=== PATIENT | male | born 1975 | race Caucasian/White ===

== ENCOUNTER 2016-08-20 12:13 | Inpatient (IN) | payer SELFPAY ==
[~2016-08-20] VITALS: Ht 185.4 cm; Wt 66.2 kg
[2016-08-20] VITALS (7 sets, daily range): BP systolic 118–133; BP diastolic 64–71; PULSE 69–84; RESP 16–18; TEMP 98.7–102.9; O2SAT 96–99
[~2016-08-20 12:13] MED LIST: CLON.1 PO; SUBO8MIS SL
[2016-08-20] MEDS ORDERED: ACETAMINOPHEN 325 MG TAB PO ONE (12:45)
[2016-08-20] MEDS ORDERED: MORPHINE SULFATE 4 MG/ML INJ IV PUSH ONE (12:45)
[2016-08-20] MEDS ORDERED: SODIUM CHLOR 0.9% 1000 ML INJ 1,000 ML IV ONE (12:45)
[2016-08-20 13:02] LABS: AUTOMATED NEUTROPHIL # 5.4 TH/MM3 (1.8-7.7); BASOPHIL # 0.3 TH/MM3 (0-0.2); BASOPHIL % 4.2 % (0.0-2.0); HEMATOCRIT 35.5 % (39.0-51.0); HEMO FLAGS DIFF FINAL; LYMPH % 11.1 % (9.0-44.0); LYMPHOCYTE # 0.8 TH/MM3 (1.0-4.8); MEAN CELL VOLUME 79.9 FL (80.0-100.0); MEAN CORPUSCULAR HEMOGLOBIN 26.7 PG (27.0-34.0); MEAN CORPUSCULAR HGB CONC 33.4 % (32.0-36.0); MONO % 6.6 % (0.0-8.0); NEUT % 78.1 % (16.0-70.0); PLATELET COUNT 177 TH/MM3 (150-450); RED BLOOD COUNT 4.44 MIL/MM3 (4.50-5.90); RED CELL DISTRIBUTION WIDTH 11.3 % (11.6-17.2)
[2016-08-20 13:13] LABS: CHLORIDE 95 MEQ/L (98-107); POTASSIUM 3.4 MEQ/L (3.5-5.1); SODIUM (NA) 130 MEQ/L (136-145)
[2016-08-20] MEDS ORDERED: SUBO2MIS SL (13:14)
[2016-08-20] MEDS ORDERED: CLON0.1T PO (13:14)
[2016-08-20] MEDS ORDERED: CLINDAMYCIN INJ 600 MG in SODIUM CHLORIDE 0.9% INJ 100 ML IV ONE (13:15)
[2016-08-20 13:16] LABS: ANION GAP 9 MEQ/L (5-15); BICARBONATE 26.1 MEQ/L (21.0-32.0); BLOOD UREA NITROGEN 10 MG/DL (7-18)
[2016-08-20 13:19] LABS: ALT (GPT) 12 U/L (12-78); AST (GOT) 18 U/L (15-37)
[2016-08-20 13:20] LABS: GLOMERULAR FILTRATION RATE 130 ML/MIN (>89)
[2016-08-20 13:21] LABS: TOTAL BILIRUBIN ADULT 0.7 MG/DL (0.2-1.0)
[2016-08-20 13:22] LABS: ALKALINE PHOSPHATASE 54 U/L (45-117)
[2016-08-20] MEDS ORDERED: IOHEXOL 350 MG/ML 10 ML VIAL (for RAD DIAG) IV ONE (13:56)
--- NOTE | 2016-08-20 14:28 | RADHPO ---
EXAM DATE/TIME: 08/20/2016 13:32 [place] COMPARISON: CT BRAIN W/O CONTRAST, February 10, 2015, 21:47. INDICATIONS : Right forearm pain and swelling status post IV injection. IV CONTRAST: 92 cc Omnipaque 350 (iohexol) IV RADIATION DOSE: 13.70 CTDIvol (mGy) MEDICAL HISTORY : None SURGICAL HISTORY : None. ENCOUNTER: Initial ACUITY: 4 - 6 days PAIN SCALE: 5/10 LOCATION: Right arm TECHNIQUE: Volumetric scanning of the forearm was performed. Using automated exposure control and adjustment of the mA and/or kV according to patient size, radiation dose was kept as low as reasonably achievable to obtain optimal diagnostic quality images. FINDINGS: The examination demonstrates extensive cellulitic changes in the subcutaneous soft tissues. There is abnormal enhancement along the cephalic vein which begins just below the level of the elbow and exten ds into the upper arm. In addition, the examination demonstrates an area of enhancement and a fluid c ollection within the deep subcutaneous tissues along the ventral surface of the forearm. There is ruth e enhancement of the fascia beneath this. This appears fairly dense by the CT and is possible this re presents phlegmon however, this would be concerning for drainable abscess. There is a small area of a bnormal enhancement and enlargement along the cephalic vein suggesting possibility of an infected thr ombophlebitis as well. The radius and ulna are intact. The distal brachial artery, the radial artery, the ulnar artery and i nterosseous artery are intact. CONCLUSION: 1. Grossly abnormal examination demonstrating abnormal enhancement along the cephalic vein with a foc al area of enlargement at the level of the mid forearm with significant induration and some fluid wit hin the superficial and deep subcutaneous soft tissues. Primary consideration would be cellulitis/phl egmon and possible infected thrombophlebitis. There are likely small amounts of drainable fluid withi n this as well however, no well-defined, enhancing pocket for drain placement is identified. Andrew Fernandez MD on August 20, 2016 at 14:20 Board Certified Radiologist. This report was verified electronically.
[2016-08-20] MEDS ORDERED: LIDOCAINE HCL 1% 50 ML VIAL INFIL ONE (15:00)
--- NOTE | 2016-08-20 15:00 | PD ---
HPI Chief Complaint: Skin Problem Time Seen by Provider: 12:33 Travel History International Travel<30 days: No Contact w/Intl Traveler<30days: No Traveled to known affect area: No History of Present Illness HPI is a 41-year-old male with history of IV drug abuse who comes in complaining of pain and swelling to his right arm. He says he noticed a small bump a few days ago and it quickly got worse. She is febrile here. He does admit to injecting in his arm in this area. He denies any chest pain or shortness of breath. PFSH Past Medical History Cancer: No Cardiovascular Problems: Yes (htn on meds) Diminished Hearing: No Endocrine: No Genitourinary: No Hypertension: Yes Immune Disorder: No Musculoskeletal: No Neurologic: No Psychiatric: No Respiratory: No Immunizations Current: No Past Surgical History Surgical History: No Previous Surgery Other Surgery: Yes (RIGHT HAND 2007 TENDON REPAIRS TO FINGERS) Social History Alcohol Use: Yes (A COUPLE BEERS 2-3 TIMES A WEEK) Tobacco Use: Yes (1/2 PPD) Substance Use: Yes (narcotics ) Allergies-Medications (Allergen,Severity, Reaction): Coded Allergies: No Known Allergies (Verified , 08/20/16) Reported Meds & Prescriptions Reported Meds & Active Scripts Active Reported Suboxone Sublingual Film (Buprenorphine-Naloxone Sublingual Film) 2-0.5 Mg Film 1 Film SL BID Unique ID number required: Clonidine (Clonidine HCl) 0.1 Mg Tab 0.1 Mg PO BID Review of Systems Except as stated in HPI: all other systems reviewed are Neg General / Constitutional: Positive: Fever HENT: No: Headaches Cardiovascular: No: Chest Pain or Discomfort Respiratory: No: Shortness of Breath Gastrointestinal: No: Nausea, Vomiting Musculoskeletal: Positive: Myalgias, Edema, Pain Skin: Positive Change in Pigmentation, Positive Lesions Neurologic: No: Weakness, Dizziness Physical Exam Narrative GENERAL: Awake and alert, in no acute distress. SKIN: Focused skin assessment warm/dry. Large area of erythema of the right forearm. Erythema is circumferential. There is an area of fluctuance on the ventral side of the right forearm. HEAD: Atraumatic. Normocephalic. EYES: Pupils equal and round. No scleral icterus. ENT: Mucous membranes pink and moist. NECK: Trachea midline. No JVD. CARDIOVASCULAR: Regular rate and rhythm. No murmur appreciated. RESPIRATORY: No accessory muscle use. Clear to auscultation. Breath sounds equal bilaterally. GASTROINTESTINAL: Abdomen soft, non-tender, nondistended. MUSCULOSKELETAL: No obvious deformities. No clubbing. No cyanosis. Large edema of the right forearm. No swelling of the elbow or wrist joint. NEUROLOGICAL: Awake and alert. No obvious cranial nerve deficits. Motor grossly within normal limits. Normal speech. PSYCHIATRIC: Appropriate mood and affect; insight and judgment normal. Data Data Last Documented VS Vital Signs Date Time Temp Pulse Resp B/P Pulse Ox O2 Delivery O2 Flow Rate FiO2 08/20/16 13:30 18 08/20/16 13:21 75 118/65 98 Room Air 08/20/16 12:39 102.9 Orders Complete Blood Count With Diff (08/20/16 12:39) Comprehensive Metabolic Panel (08/20/16 12:39) Ct Forearm W Iv Contrast (08/20/16 ) Sodium Chlor 0.9% 1000 Ml Inj (Ns 1000 M (08/20/16 12:45) Acetaminophen (Tylenol) (08/20/16 12:45) Morphine Inj (Morphine Inj) (08/20/16 12:45) Clindamycin Inj (Cleocin Inj) (08/20/16 13:15) Iohexol 350 Inj (Omnipaque 350 Inj) (08/20/16 13:56) Lactic Acid (08/20/16 14:14) Lidocaine 1% Inj (50 Ml) (Xylocaine 1% I (08/20/16 15:00) Wound Culture And Gram Stain (08/20/16 14:46) Blood Culture (08/20/16 14:49) Admit Order (Ed Use Only) (08/20/16 ) Place In Observation (08/20/16 ) Diet Regular Basic (08/20/16 Dinner) Activity Oob With Assistance (08/20/16 15:10) Vital Signs (Adult) ANAMIKA.Q4H (08/20/16 15:10) Magnesium (Mg) (08/20/16 15:10) Potassium Chloride (Kcl) (08/20/16 15:15) Labs Laboratory Tests Test 08/20/16 08/20/16 12:55 14:29 White Blood Count 7.0 TH/MM3 Red Blood Count 4.44 MIL/MM3 Hemoglobin 11.9 GM/DL Hematocrit 35.5 % Mean Corpuscular Volume 79.9 FL Mean Corpuscular Hemoglobin 26.7 PG Mean Corpuscular Hemoglobin 33.4 % Concent Red Cell Distribution Width 11.3 % Platelet Count 177 TH/MM3 Mean Platelet Volume 7.1 FL Neutrophils (%) (Auto) 78.1 % Lymphocytes (%) (Auto) 11.1 % Monocytes (%) (Auto) 6.6 % Eosinophils (%) (Auto) 0.0 % Basophils (%) (Auto) 4.2 % Neutrophils # (Auto) 5.4 TH/MM3 Lymphocytes # (Auto) 0.8 TH/MM3 Monocytes # (Auto) 0.5 TH/MM3 Eosinophils # (Auto) 0.0 TH/MM3 Basophils # (Auto) 0.3 TH/MM3 CBC Comment DIFF FINAL Differential Comment Sodium Level 130 MEQ/L Potassium Level 3.4 MEQ/L Chloride Level 95 MEQ/L Carbon Dioxide Level 26.1 MEQ/L Anion Gap 9 MEQ/L Blood Urea Nitrogen 10 MG/DL Creatinine 0.68 MG/DL Estimat Glomerular Filtration 130 ML/MIN Rate Random Glucose 101 MG/DL Calcium Level 7.8 MG/DL Magnesium Level 1.7 MG/DL Total Bilirubin 0.7 MG/DL Aspartate Amino Transf 18 U/L (AST/SGOT) Alanine Aminotransferase 12 U/L (ALT/SGPT) Alkaline Phosphatase 54 U/L Total Protein 6.6 GM/DL Albumin 2.9 GM/DL Lactic Acid Level 0.7 mmol/L MDM Medical Decision Making Medical Screen Exam Complete: Yes Emergency Medical Condition: Yes Medical Record Reviewed: Yes Differential Diagnosis Cellulitis versus abscess versus necrotizing fasciitis Narrative Course Patient is a 41-year-old male comes in complaining of pain and swelling to his right forearm. Patient is febrile at triage. Exam shows large area of erythema , warmth, small abscess on the ventral side of the arm. IV established, labs sent. Labs show a sodium of 130, evidence of mild anemia. CT of the forearm shows extensive area of cellulitis with some deep tissue fluid collections. Patient given clindamycin. Given IV fluids, given Tylenol, given morphine. Patient will require admission for his extensive infection. Abscess drained and fluid sent for culture. Procedures Procedure Narrative INCISION AND DRAINAGE OF ABSCESS: The area was prepped and was sterilely draped. A subcutaneous wheal of 1 % Xylocaine with a total number 6 mL was used to anesthetize the area properly. A number 11 scalpel was used to make a 1 -cm incision across the area of the abscess. The abscess was drained, complex loculations were broken down, and irrigated with normal saline. Cultures were obtained. Sterile dressing applied. Diagnosis Primary Impression: right forearm cellulitis and abscess Admitting Information Admitting Physician Requests: Admit Condition: Stable Yeimi Moncada MD August 20, 2016 15:00
[2016-08-20] MEDS ORDERED: POTASSIUM CHLORIDE 10 MEQ CONTROLLED RELEASE TAB PO ONE (15:15)
[2016-08-20] MEDS ORDERED: Vancomycin Consult Pharmacy 1 EA OTHER SCH (16:00)
[2016-08-20] MEDS ORDERED: KETOROLAC TROMETHAMINE 30 MG/ML (IVP) VIAL IVP PRN (16:00)
[2016-08-20] MEDS ORDERED: ACETAMINOPHEN 325 MG TAB PO PRN (16:00)
[2016-08-20] MEDS ORDERED: VANCOMYCIN INJ 1,000 MG in SODIUM CHLOR 0.9% 250 ML INJ 250 ML IV ONE (16:00)
[2016-08-20] MEDS ORDERED: BISACODYL 10 MG SUPP RECTAL PRN (16:00)
[2016-08-20] MEDS ORDERED: ENALAPRILAT 1.25 MG/ML VIAL IV PRN (16:00)
[2016-08-20] MEDS ORDERED: cloNIDine HCL 0.1 MG TAB PO PRN (16:00)
[2016-08-20] MEDS ORDERED: ONDANSETRON HCL 4 MG/2 ML VIAL IVP PRN (16:00)
[2016-08-20] MEDS ORDERED: NALOXONE HCL 0.4 MG/ML AMP IV PRN (16:00)
--- NOTE | 2016-08-20 16:10 | HHI.HP ---
[facility] Service [facility] Primary Care Physician No Primary Care Physician Admission Diagnosis Cellulitis, sepsis Diagnoses: Chief Complaint: forearm pain and swelling Travel History International Travel<30 Days: No Contact w/Intl Traveler <30 Da: No Traveled to Known Affected Are: No History of Present Illness This is a 41-year-old male with history of IV narcotic abuse and HTN. He comes in complaining of pain and swelling to his right arm for the past several days. He reports of constant pressure. He noted a small bump a few days ago and it quickly got worse. He was febrile Tmax of over 101 improved after taking Tylenol. He does admit to injecting Dilaudid in his arm. He denies any chest pain or shortness of breath. Has history of MRSA. In the emergency department , abscess was drained and he was given IV clindamycin Review of Systems Except as stated in HPI: all other systems reviewed are Neg Past Family Social History Past Medical History Hypertension Past Surgical History Tendon surgery Reported Medications Suboxone and clonidine Allergies: Coded Allergies: No Known Allergies (Verified , 08/20/16) Family History No CVA or [place] Social History Drinks couple of beers 2-3 times a week. Smokes half a pack per day Physical Exam Vital Signs Vital Signs Date Time Temp Pulse Resp B/P Pulse Ox O2 Delivery O2 Flow Rate FiO2 08/20/16 13:30 18 08/20/16 13:21 75 18 118/65 98 Room Air 08/20/16 12:39 102.9 76 16 118/64 98 Room Air 08/20/16 12:20 101.5 82 16 128/68 98 Physical Exam GENERAL: This is a well-nourished, well-developed patient, in no apparent distress. SKIN: No rashes, ecchymoses or lesions. Cool and dry. Right forearm with large circumferential erythema with an area of fluctuance on the ventral side HEAD: Atraumatic. Normocephalic. No temporal or scalp tenderness. EYES: Pupils equal round and reactive. Extraocular motions intact. No scleral icterus. No injection or drainage. ENT: Nose without bleeding, purulent drainage or septal hematoma. Throat without erythema, tonsillar hypertrophy or exudate. Uvula midline. Airway patent. NECK: Trachea midline. No JVD or lymphadenopathy. Supple, nontender, no meningeal signs. CARDIOVASCULAR: Regular rate and rhythm without murmurs, gallops, or rubs. RESPIRATORY: Clear to auscultation. Breath sounds equal bilaterally. No wheezes , rales, or rhonchi. GASTROINTESTINAL: Abdomen soft, non-tender, nondistended. No guarding. MUSCULOSKELETAL: Extremities without clubbing, cyanosis, or edema. No joint tenderness, effusion, or edema noted. No calf tenderness. Negative Homans sign bilaterally. NEUROLOGICAL: Awake and alert. Cranial nerves II through XII intact. Motor and sensory grossly within normal limits. Five out of 5 muscle strength in all muscle groups. Normal speech. Laboratory Laboratory Tests Test 08/20/16 08/20/16 12:55 14:29 White Blood Count 7.0 Red Blood Count 4.44 Hemoglobin 11.9 Hematocrit 35.5 Mean Corpuscular Volume 79.9 Mean Corpuscular Hemoglobin 26.7 Mean Corpuscular Hemoglobin 33.4 Concent Red Cell Distribution Width 11.3 Platelet Count 177 Mean Platelet Volume 7.1 Neutrophils (%) (Auto) 78.1 Lymphocytes (%) (Auto) 11.1 Monocytes (%) (Auto) 6.6 Eosinophils (%) (Auto) 0.0 Basophils (%) (Auto) 4.2 Neutrophils # (Auto) 5.4 Lymphocytes # (Auto) 0.8 Monocytes # (Auto) 0.5 Eosinophils # (Auto) 0.0 Basophils # (Auto) 0.3 CBC Comment DIFF FINAL Differential Comment Sodium Level 130 Potassium Level 3.4 Chloride Level 95 Carbon Dioxide Level 26.1 Anion Gap 9 Blood Urea Nitrogen 10 Creatinine 0.68 Estimat Glomerular Filtration 130 Rate Random Glucose 101 Calcium Level 7.8 Magnesium Level 1.7 Total Bilirubin 0.7 Aspartate Amino Transf 18 (AST/SGOT) Alanine Aminotransferase 12 (ALT/SGPT) Alkaline Phosphatase 54 Total Protein 6.6 Albumin 2.9 Lactic Acid Level 0.7 Result Diagram: 08/20/16 1255 08/20/16 1255 Imaging Last Impressions Upper Extremity CT 08/20/16 0000 Signed Impressions: Service Date/Time: Saturday, August 20, 2016 13:32 - CONCLUSION: 1. Grossly abnormal examination demonstrating abnormal enhancement along the cephalic vein with a focal area of enlargement at the level of the mid forearm with significant induration and some fluid within the superficial and deep subcutaneous soft tissues. Primary consideration would be cellulitis/phlegmon and possible infected thrombophlebitis. There are likely small amounts of drainable fluid within this as well however, no well-defined, enhancing pocket for drain placement is identified. Andrew Fernandez MD Assessment and Plan Problem List: (1) right forearm cellulitis and abscess Status: Acute (2) IVDA Status: Acute Assessment and Plan This is a 41-year-old male who comes in complaining of pain and swelling to his right arm associated with fever. He does admit to injecting Dilaudid in his arm. Has history of MRSA. Right forearm cellulitis/abscess status post I and D and IV clindamycin in the emergency department. History of MRSA. CT shows cellulitis/phlegmon and possible infected thrombophlebitis. Start IV vancomycin and pain management with IV Toradol. Patient aware he is not going to be given IV narcotics. Warm compresses and elevation of the right upper extremity. Follow up cultures. Consider hand surgery consultation for formal I and D Hypertension. Stable continue clonidine with as needed antihypertensives Polysubstance abuse. Patient counseled. Low risk for DVT Discussed Condition With patient Say Shelton MD August 20, 2016 16:10
[2016-08-20] MEDS ORDERED: SUBO8MIS SL (17:55)
[2016-08-20] MEDS ORDERED: LORazepam 0.5 MG TAB PO PRN (18:00)
[2016-08-20] MEDS: ACETAMINOPHEN 325 MG TAB PO PRN (20:01)
[2016-08-20] MEDS: cloNIDine HCL 0.1 MG TAB PO SCH (20:01)
[2016-08-20] MEDS ORDERED: [UNRECOGNIZED DRUG - OTHER] SL SCH (21:00)
[2016-08-20] MEDS ORDERED: BUPRENORPHINE NALOXONE SL SCH (21:00)
[2016-08-21] VITALS (7 sets, daily range): BP systolic 99–136; BP diastolic 57–84; PULSE 68–87; RESP 14–22; TEMP 96.9–102.4; O2SAT 98–100
[2016-08-21] MEDS: VANCOMYCIN 1,000 MG/NS 250 ML IV SCH ×6 (00:11→16:11)
[2016-08-21] MEDS: ACETAMINOPHEN 325 MG TAB PO PRN (00:12)
[2016-08-21] MEDS ORDERED: IBUPROFEN 400 MG TAB PO ONE (00:45)
[2016-08-21 00:59] LABS: BARBITURATES, URINE NEG (NEG)
[2016-08-21 01:00] LABS: AMPHETAMINE, URINE NEG (NEG); COCAINE, URINE POS (NEG)
[2016-08-21] MEDS: BUPRENORPHINE 8 MG SL PRN ×2 (06:22→06:25)
[2016-08-21] MEDS: NALOXONE 2 MG SL PRN ×2 (06:22→06:25)
[2016-08-21] MEDS ORDERED: IBUPROFEN 400 MG TAB PO PRN (08:00)
[2016-08-21] MEDS: cloNIDine HCL 0.1 MG TAB PO SCH ×2 (08:26→21:13)
[2016-08-21 09:15] LABS: BICARBONATE 30.3 MEQ/L (21.0-32.0); POTASSIUM 4.2 MEQ/L (3.5-5.1)
--- NOTE | 2016-08-21 09:40 | HHI.PR ---
Subjective Remarks Follow-up right forearm cellulitis/abscess. States he is feeling much better able to ambulate without dizziness. Pain is nonexistent did not require analgesics overnight. Denies withdrawal symptoms. Discussed with RN Objective Vitals Vital Signs Date Time Temp Pulse Resp B/P Pulse Ox O2 Delivery O2 Flow Rate FiO2 08/21/16 07:57 96.9 68 20 99/57 98 08/21/16 02:30 99.2 08/21/16 00:55 102.4 80 14 124/70 98 08/20/16 20:28 102.9 83 16 129/71 99 08/20/16 19:50 98 21 08/20/16 17:25 98.7 69 18 133/68 98 08/20/16 15:45 98.9 84 18 96 08/20/16 13:30 18 08/20/16 13:21 75 18 118/65 98 Room Air 08/20/16 12:39 102.9 76 16 118/64 98 Room Air 08/20/16 12:20 101.5 82 16 128/68 98 I/O 08/20/16 08/20/16 08/20/16 08/21/16 08/21/16 08/21/16 07:00 15:00 23:00 07:00 15:00 23:00 Intake Total 1100 ml 720 ml Output Total 900 ml Balance 200 ml 720 ml Intake Oral 720 ml IV Total 1100 ml Output Urine Total 900 ml # Voids 1 3 Result Diagram: 08/20/16 1255 08/21/16 0735 Imaging Last Impressions Upper Extremity CT 08/20/16 0000 Signed Impressions: Service Date/Time: Saturday, August 20, 2016 13:32 - CONCLUSION: 1. Grossly abnormal examination demonstrating abnormal enhancement along the cephalic vein with a focal area of enlargement at the level of the mid forearm with significant induration and some fluid within the superficial and deep subcutaneous soft tissues. Primary consideration would be cellulitis/phlegmon and possible infected thrombophlebitis. There are likely small amounts of drainable fluid within this as well however, no well-defined, enhancing pocket for drain placement is identified. Andrew Fernandez MD Objective Remarks GENERAL: This is a well-nourished, well-developed patient, in no apparent distress. SKIN: No rashes, ecchymoses or lesions. Cool and dry. Right forearm with improving erythema. Affected areas still firm no fluctuance noted HEAD: Atraumatic. Normocephalic. No temporal or scalp tenderness. EYES: Pupils equal round and reactive. Extraocular motions intact. No scleral icterus. No injection or drainage. ENT: Nose without bleeding, purulent drainage or septal hematoma. Throat without erythema, tonsillar hypertrophy or exudate. Uvula midline. Airway patent. NECK: Trachea midline. No JVD or lymphadenopathy. Supple, nontender, no meningeal signs. CARDIOVASCULAR: Regular rate and rhythm without murmurs, gallops, or rubs. RESPIRATORY: Clear to auscultation. Breath sounds equal bilaterally. No wheezes , rales, or rhonchi. GASTROINTESTINAL: Abdomen soft, non-tender, nondistended. No guarding. MUSCULOSKELETAL: Extremities without clubbing, cyanosis, or edema. No joint tenderness, effusion, or edema noted. No calf tenderness. Negative Homans sign bilaterally. NEUROLOGICAL: Awake and alert. Cranial nerves II through XII intact. Motor and sensory grossly within normal limits. Five out of 5 muscle strength in all muscle groups. Normal speech. Procedures bedside I and D A/P Problem List: (1) right forearm cellulitis and abscess Status: Acute (2) IVDA Status: Acute Assessment and Plan This is a 41-year-old male who comes in complaining of pain and swelling to his right arm associated with fever. He does admit to injecting Dilaudid in his arm. Has history of MRSA. Right forearm cellulitis/abscess status post I and D and IV clindamycin in the emergency department. Possible history of MRSA. CT shows cellulitis/phlegmon and possible infected thrombophlebitis. Improving cellulitis continue IV vancomycin and pain management with IV Toradol. Patient aware he is not going to be given IV narcotics. Warm compresses and elevation of the right upper extremity. Follow up cultures growing gram-positive cocci in 1 out of 4 bottles. Consider surgery consultation for formal I and D Hypertension. Stable continue clonidine with as needed antihypertensives Polysubstance abuse. Patient counseled. Low risk for DVT Discharge Planning Not stable for discharge Say Shelton MD August 21, 2016 09:40
[2016-08-21] MEDS ORDERED: DIGOXIN 0.25 MG TAB PO ONE (13:15)
[2016-08-21] MEDS ORDERED: PHARMACY ORDERED LAB ONE (15:45)
[2016-08-21] MEDS: KETOROLAC TROMETHAMINE 30 MG/ML (IVP) VIAL IVP PRN (16:13)
[2016-08-22] VITALS: BP 125/84; PULSE 99; RESP 20; TEMP 99.6; O2SAT 98
[2016-08-22] MEDS: VANCOMYCIN INJ 1,250 MG in SODIUM CHLOR 0.9% 250 ML INJ 250 ML IV SCH ×2 (00:13→09:04)
[2016-08-22] MEDS: KETOROLAC TROMETHAMINE 30 MG/ML (IVP) VIAL IVP PRN ×2 (00:13→12:54)
[2016-08-22 04:00] VITALS: PULSE 88; RESP 20; O2SAT 100
[2016-08-22 08:00] VITALS: BP 105/74; PULSE 72; RESP 19; TEMP 98.6; O2SAT 100; O2SAT 96
[2016-08-22] MEDS: cloNIDine HCL 0.1 MG TAB PO SCH (09:02)
[2016-08-22] MEDS: NALOXONE 2 MG SL PRN (09:02)
[2016-08-22] MEDS: BUPRENORPHINE 8 MG SL PRN (09:02)
--- NOTE | 2016-08-22 09:51 | HHI.PR ---
Subjective Remarks Follow-up right forearm cellulitis/abscess. Patient states purulent material drained from right forearm. Denies withdrawal symptoms. Required IV Toradol overnight. Discussed with mother and RN Objective Vitals Vital Signs Date Time Temp Pulse Resp B/P Pulse Ox O2 Delivery O2 Flow Rate FiO2 08/22/16 08:00 98.6 72 19 105/74 100 08/22/16 04:00 88 20 100 08/22/16 01:13 18 08/22/16 00:00 99.6 99 20 125/84 98 08/21/16 20:00 98.3 69 22 118/66 98 08/21/16 20:00 98 21 08/21/16 16:00 97.8 87 20 136/84 100 08/21/16 13:36 98 08/21/16 12:00 101.1 84 20 132/74 100 I/O 08/21/16 08/21/16 08/21/16 08/22/16 08/22/16 08/22/16 06:59 14:59 22:59 06:59 14:59 22:59 Intake Total 720 ml 1020 ml 550 ml 610 ml Balance 720 ml 1020 ml 550 ml 610 ml Intake Oral 720 ml 1020 ml 550 ml 360 ml IV Total 250 ml # Voids 3 10 2 3 # Bowel Movements 0 0 Result Diagram: 08/20/16 1255 08/21/16 0735 Imaging Last Impressions Upper Extremity CT 08/20/16 0000 Signed Impressions: Service Date/Time: Saturday, August 20, 2016 13:32 - CONCLUSION: 1. Grossly abnormal examination demonstrating abnormal enhancement along the cephalic vein with a focal area of enlargement at the level of the mid forearm with significant induration and some fluid within the superficial and deep subcutaneous soft tissues. Primary consideration would be cellulitis/phlegmon and possible infected thrombophlebitis. There are likely small amounts of drainable fluid within this as well however, no well-defined, enhancing pocket for drain placement is identified. Andrew Fernandez MD Objective Remarks GENERAL: This is a well-nourished, well-developed patient, in no apparent distress. SKIN: No rashes, ecchymoses or lesions. Cool and dry. Right forearm with improving erythema and swelling HEAD: Atraumatic. Normocephalic. No temporal or scalp tenderness. EYES: Pupils equal round and reactive. Extraocular motions intact. No scleral icterus. No injection or drainage. ENT: Nose without bleeding, purulent drainage or septal hematoma. Throat without erythema, tonsillar hypertrophy or exudate. Uvula midline. Airway patent. NECK: Trachea midline. No JVD or lymphadenopathy. Supple, nontender, no meningeal signs. CARDIOVASCULAR: Regular rate and rhythm without murmurs, gallops, or rubs. RESPIRATORY: Clear to auscultation. Breath sounds equal bilaterally. No wheezes , rales, or rhonchi. GASTROINTESTINAL: Abdomen soft, non-tender, nondistended. No guarding. MUSCULOSKELETAL: Extremities without clubbing, cyanosis, or edema. No joint tenderness, effusion, or edema noted. No calf tenderness. Negative Homans sign bilaterally. NEUROLOGICAL: Awake and alert. Cranial nerves II through XII intact. Motor and sensory grossly within normal limits. Five out of 5 muscle strength in all muscle groups. Normal speech. Procedures bedside I and D A/P Problem List: (1) right forearm cellulitis and abscess Status: Acute (2) IVDA Status: Acute Assessment and Plan This is a 41-year-old male who comes in complaining of pain and swelling to his right arm associated with fever. He does admit to injecting Dilaudid in his arm. Has history of MRSA. Right forearm cellulitis/abscess status post I and D and IV clindamycin in the emergency department with MSSA bacteremia. Possible history of MRSA. Cx MSSA. CT shows cellulitis/phlegmon and possible infected thrombophlebitis. Improving cellulitis switch IV vancomycin to IV Ancef and continue pain management with IV Toradol. Patient aware he is not going to be given IV narcotics. Warm compresses and elevation of the right upper extremity. Repeat blood culture. Consult ID Hypertension. Stable continue clonidine with as needed antihypertensives Polysubstance abuse. UDS with cocaine. Patient counseled. Low risk for DVT Discharge Planning Not ready for discharge Say Shelton MD August 22, 2016 09:51
[2016-08-22 12:00] VITALS: BP 113/76; PULSE 72; RESP 20; TEMP 97.6; O2SAT 99
[2016-08-22] MEDS: NEOMYCIN/POLYMYXIN/BACITRACIN OINT 15 GM TUBE TOPICAL SCH (12:28)
[2016-08-22] MEDS: LORazepam 2 MG/ML VIAL IV PUSH PRN (14:50)
[2016-08-22 16:00] VITALS: BP 126/91; PULSE 67; RESP 18; TEMP 96.7; O2SAT 100
[2016-08-22 20:19] VITALS: O2SAT 99
[2016-08-23] VITALS: BP 144/87; PULSE 68; RESP 18; TEMP 99; O2SAT 100
[2016-08-23] MEDS: cloNIDine HCL 0.1 MG TAB PO SCH ×3 (00:06→20:50)
[2016-08-23] MEDS ORDERED: PHARMACY ORDERED LAB ONE (07:45)
[2016-08-23 08:00] VITALS: BP 133/84; PULSE 62; RESP 20; TEMP 96; O2SAT 100
--- NOTE | 2016-08-23 08:14 | PD.CONS ---
History of Present Illness Service Infectious disease Consult Requested By Dr Shelton Reason for Consult MSSA bacteremia, IVDA Primary Care Physician No Primary Care Physician Diagnoses: (1) right forearm cellulitis and abscess History of Present Illness Patient with h/o IVDU came in with rt forearm swelling and pain. Had fevers on first day. I & D of right forearm abscess done. Wound culture growing MSSA and blood culture 07/19 with GPC hence the consult. Review of Systems Constitutional: COMPLAINS OF: Fever, Chills Endocrine: DENIES: Polydipsia, Polyuria Eyes: DENIES: Blurred vision, Diplopia Ears, nose, mouth, throat: DENIES: Hearing loss, Nasal discharge Respiratory: COMPLAINS OF: Shortness of breath, DENIES: Cough, Wheezing Cardiovascular: DENIES: Chest pain, Palpitations Gastrointestinal: DENIES: Abdominal pain, Diarrhea Genitourinary: DENIES: Urinary frequency, Urgency Musculoskeletal: COMPLAINS OF: Joint pain, Muscle aches, DENIES: Back pain Integumentary: DENIES: Pruritus, Rash Neurologic: DENIES: Headache, Localized weakness Psychiatric: DENIES: Confusion Past Family Social History Allergies: Coded Allergies: No Known Allergies (Verified , 08/20/16) Past Medical History Hypertension Past Surgical History Tendon surgery Reported Medications Suboxone and clonidine Allergies: Coded Allergies: No Known Allergies (Verified , 08/20/16) Family History No CVA or [place] Social History Drinks couple of beers 2-3 times a week. Smokes half a pack per day Active Ordered Medications IV Cefazolin Physical Exam Vital Signs Vital Signs Date Time Temp Pulse Resp B/P Pulse Ox O2 Delivery O2 Flow Rate FiO2 08/23/16 00:00 99.0 68 18 144/87 100 08/22/16 20:19 99 21 08/22/16 16:00 96.7 67 18 126/91 100 08/22/16 14:44 18 08/22/16 12:00 97.6 72 20 113/76 99 Physical Exam GENERAL: This is a well-nourished, well-developed patient, in no apparent distress. SKIN: RT forearm some erythema- wound small - some drainage. HEAD: Atraumatic. Normocephalic. No temporal or scalp tenderness. EYES: Pupils equal round and reactive. Extraocular motions intact. No scleral icterus. No injection or drainage. ENT: Nose without bleeding, purulent drainage or septal hematoma. Throat without erythema, tonsillar hypertrophy or exudate. Uvula midline. Airway patent. NECK: Trachea midline. No JVD or lymphadenopathy. Supple, nontender, no meningeal signs. CARDIOVASCULAR: Regular rate and rhythm with systolic murmurs, gallops, or rubs. RESPIRATORY: Clear to auscultation. Breath sounds equal bilaterally. No wheezes , rales, or rhonchi. GASTROINTESTINAL: Abdomen soft, non-tender, nondistended. No hepato-splenomegaly , or palpable masses. No guarding. MUSCULOSKELETAL: Extremities wRt forearm some swelling and induration NEUROLOGICAL: Awake and alert. Cranial nerves II through XII intact. Motor and sensory grossly within normal limits. Five out of 5 muscle strength in all muscle groups. Normal speech. Laboratory Date/Time Procedure Status Source Growth 08/22/16 10:30 Aerobic Blood Culture Received Blood Peripheral Pending 08/22/16 10:30 Anaerobic Blood Culture Received Blood Peripheral Pending 08/20/16 15:20 Gram Stain - Final Complete Wound Arm 08/20/16 15:20 Wound Culture - Final Complete Staphylococcus Aureus 08/20/16 15:05 Aerobic Blood Culture - Preliminary Resulted Blood Peripheral Gram Positive Cocci 08/20/16 15:05 Anaerobic Blood Culture - Preliminary Resulted Staphylococcus Aureus Result Diagram: 08/20/16 1255 08/21/16 0735 Assessment and Plan Problem List: (1) right forearm cellulitis and abscess Status: Acute (2) IVDA Status: Acute (3) Bacteremia Status: Acute Plan: Continue IV Cefazolin- increase dose to 2 g IV q8hrs Repeat blood cultures to check if he is clearing the bacteremia- drawn today Check Echocardiogram- If Echo is negative - he may need PAULETTE. Summer Ortega MD August 23, 2016 08:13
[2016-08-23] MEDS: NEOMYCIN/POLYMYXIN/BACITRACIN OINT 15 GM TUBE TOPICAL SCH (09:04)
[2016-08-23] MEDS: NALOXONE 2 MG SL PRN (09:06)
[2016-08-23] MEDS: BUPRENORPHINE 8 MG SL PRN (09:06)
--- NOTE | 2016-08-23 10:45 | HHI.PR ---
Subjective Remarks Follow-up right forearm cellulitis and bacteremia. Patient has no new complaints. Agrees with current management. Discussed with RN and infectious disease Objective Vitals Vital Signs Date Time Temp Pulse Resp B/P Pulse Ox O2 Delivery O2 Flow Rate FiO2 08/23/16 08:00 96.0 62 20 133/84 100 08/23/16 00:00 99.0 68 18 144/87 100 08/22/16 20:19 99 21 08/22/16 16:00 96.7 67 18 126/91 100 08/22/16 14:44 18 08/22/16 12:00 97.6 72 20 113/76 99 I/O 08/22/16 08/22/16 08/22/16 08/23/16 08/23/16 08/23/16 07:00 15:00 23:00 07:00 15:00 23:00 Intake Total 610 ml 620 ml 560 ml 480 ml Output Total 3 ml Balance 610 ml 617 ml 560 ml 480 ml Intake Oral 360 ml 620 ml 560 ml 480 ml IV Total 250 ml Output Urine Total 3 ml Stool Total 0 ml # Voids 3 3 2 2 # Bowel Movements 0 0 0 Result Diagram: 08/20/16 1255 08/21/16 0735 Imaging Last Impressions Upper Extremity CT 08/20/16 0000 Signed Impressions: Service Date/Time: Saturday, August 20, 2016 13:32 - CONCLUSION: 1. Grossly abnormal examination demonstrating abnormal enhancement along the cephalic vein with a focal area of enlargement at the level of the mid forearm with significant induration and some fluid within the superficial and deep subcutaneous soft tissues. Primary consideration would be cellulitis/phlegmon and possible infected thrombophlebitis. There are likely small amounts of drainable fluid within this as well however, no well-defined, enhancing pocket for drain placement is identified. Andrew Fernandez MD Objective Remarks GENERAL: This is a well-nourished, well-developed patient, in no apparent distress. SKIN: No rashes, ecchymoses or lesions. Cool and dry. Right forearm with improving erythema and swelling HEAD: Atraumatic. Normocephalic. No temporal or scalp tenderness. EYES: Pupils equal round and reactive. Extraocular motions intact. No scleral icterus. No injection or drainage. ENT: Nose without bleeding, purulent drainage or septal hematoma. Throat without erythema, tonsillar hypertrophy or exudate. Uvula midline. Airway patent. NECK: Trachea midline. No JVD or lymphadenopathy. Supple, nontender, no meningeal signs. CARDIOVASCULAR: Regular rate and rhythm without murmurs, gallops, or rubs. RESPIRATORY: Clear to auscultation. Breath sounds equal bilaterally. No wheezes , rales, or rhonchi. GASTROINTESTINAL: Abdomen soft, non-tender, nondistended. No guarding. MUSCULOSKELETAL: Extremities without clubbing, cyanosis, or edema. No joint tenderness, effusion, or edema noted. No calf tenderness. Negative Homans sign bilaterally. NEUROLOGICAL: Awake and alert. Cranial nerves II through XII intact. Motor and sensory grossly within normal limits. Five out of 5 muscle strength in all muscle groups. Normal speech. Procedures bedside I and D A/P Problem List: (1) right forearm cellulitis and abscess Status: Acute (2) IVDA Status: Acute Assessment and Plan This is a 41-year-old male who comes in complaining of pain and swelling to his right arm associated with fever. He does admit to injecting Dilaudid in his arm. Has history of MRSA. Right forearm cellulitis/abscess status post I and D and IV clindamycin in the emergency department with MSSA/GPC bacteremia. Possible history of MRSA. CT shows cellulitis/phlegmon and possible infected thrombophlebitis. Improving cellulitis switched IV vancomycin to IV Ancef and continue pain management with IV Toradol. Patient aware he is not going to be given IV narcotics. Warm compresses and elevation of the right upper extremity. Repeat blood culture negative to date. Consulted ID Hypertension. Stable continue clonidine with as needed antihypertensives Polysubstance abuse. UDS with cocaine. Patient counseled. Low risk for DVT Discharge Planning Not ready for discharge Say Shelton MD August 23, 2016 10:45
[2016-08-23 12:00] VITALS: BP 122/77; PULSE 68; RESP 20; TEMP 98.1; O2SAT 99
[2016-08-23] MEDS: LORazepam 2 MG/ML VIAL IV PUSH PRN (13:28)
--- NOTE | 2016-08-23 15:18 | EC ---
Study Study Date:08/23/2016 STUDY CONCLUSIONS SUMMARY LEFT VENTRICLE: The cavity size was normal. Wall thickness was normal. Systolic function was normal. The estimated ejection fraction was in the range of 55% to 60%. Wall motion was normal; there were no regional wall motion abnormalities. If LV function is below 40, please consider prescribing an ACEI or ARB or document rationale for non-use. PROCEDURE DATA STUDY STATUS: Elective. Procedure: Transthoracic echocardiography. Image quality was good. Scanning was performed from the parasternal, apical, and subcostal acoustic windows. Study completion: The patient tolerated the procedure well. Transthoracic echocardiography. M-mode, complete 2D, complete spectral Doppler, and color Doppler. Patient status: Inpatient. CARDIAC ANATOMY LEFT VENTRICLE: The cavity size was normal. Wall thickness was normal. Systolic function was normal. The estimated ejection fraction was in the range of 55% to 60%. Wall motion was normal; there were no regional wall motion abnormalities. AORTIC VALVE: Trileaflet; normal thickness leaflets. Doppler: Transvalvular velocity was within the normal range. There was no stenosis. No regurgitation. AORTA: Aortic root: The aortic root was normal in size. MITRAL VALVE: Structurally normal valve. Doppler: Transvalvular velocity was within the normal range. There was no evidence for stenosis. No regurgitation. Peak gradient: 2mm Hg (D). LEFT ATRIUM: The atrium was normal in size. RIGHT VENTRICLE: The cavity size was normal. Wall thickness was normal. PULMONIC VALVE: Doppler: Transvalvular velocity was within the normal range. There was no evidence for stenosis. No regurgitation. TRICUSPID VALVE: Structurally normal valve. Doppler: Transvalvular velocity was within the normal range. No regurgitation. PULMONARY ARTERY: The main pulmonary artery was normal-sized. Systolic pressure was within the normal range. RIGHT ATRIUM: The atrium was normal in size. PERICARDIUM: There was no pericardial effusion. SYSTEMIC VEINS: Inferior vena cava: The vessel was normal in size. BASIC MEASUREMENTS ADULT NORMAL Left ventricle LV internal dimension, ED, chordal level, 49.2 mm 43-52 PLAX LV internal dimension, ES, chordal level, 37 mm 23-38 PLAX Fractional shortening, chordal level, PLAX *25 % >29 LV posterior wall thickness, ED 9.13 mm IVS/LVPW ratio, ED 1.24 <1.3 Ventricular septum Septal thickness, ED 11.3 mm Aortic valve Leaflet separation 22 mm 15-26 Right ventricle RV internal dimension, ED, PLAX 26.6 mm 19-38 BASIC MEASUREMENTS ADULT NORMAL Aortic valve Leaflet separation 22 mm 15-26 Aorta Root diameter, ED 30 mm 20-37 Left atrium Anterior-posterior dimension, ES 40 mm 19-40 LA/aortic root ratio 1.33 DOPPLER MEASUREMENTS ADULT NORMAL Mitral valve Peak E-wave velocity 74.5 cm/s Peak A-wave velocity 61.7 cm/s Peak gradient, D 2 mm Hg Peak E/A ratio 1.2 LEGEND: Mean values are shown as u=mean value. Asterisk (*) taylor values outside specified normal range. Prepared and signed by Tosin Loya [id number]
[2016-08-23 16:00] VITALS: BP 133/77; PULSE 68; RESP 20; TEMP 97; O2SAT 98
[2016-08-23 20:00] VITALS: BP 124/74; PULSE 76; RESP 18; TEMP 97.5; O2SAT 100
[2016-08-24] VITALS: BP 145/97; PULSE 60; RESP 18; TEMP 97.9; O2SAT 99
[2016-08-24] MEDS: BUPRENORPHINE 8 MG SL PRN (08:56)
[2016-08-24] MEDS: NALOXONE 2 MG SL PRN (08:56)
[2016-08-24] MEDS: cloNIDine HCL 0.1 MG TAB PO SCH ×2 (08:57→21:06)
[2016-08-24] MEDS: NEOMYCIN/POLYMYXIN/BACITRACIN OINT 15 GM TUBE TOPICAL SCH (08:57)
[2016-08-24 08:59] VITALS: BP 143/87; PULSE 61; RESP 15; TEMP 96.2; O2SAT 100
--- NOTE | 2016-08-24 11:11 | HHI.PR ---
Subjective Remarks Patient resting in bed denied fever or chills, he thing his right arm improving , to me it still swollen comparing to his left arm 2-D echo reviewed by me know agitation or abnormality, will defer to iv for further investigation or PAULETTE Objective Vitals Vital Signs Date Time Temp Pulse Resp B/P Pulse Ox O2 Delivery O2 Flow Rate FiO2 08/24/16 08:59 96.2 61 15 143/87 100 08/24/16 06:00 08/24/16 00:00 97.9 60 18 145/97 99 08/23/16 20:00 97.5 76 18 124/74 100 08/23/16 20:00 97.5 76 18 124/74 100 08/23/16 16:00 97.0 68 20 133/77 98 08/23/16 12:00 98.1 68 20 122/77 99 I/O 08/23/16 08/23/16 08/23/16 08/24/16 08/24/16 08/24/16 07:00 15:00 23:00 07:00 15:00 23:00 Intake Total 480 ml 960 ml 560 ml 101 ml Balance 480 ml 960 ml 560 ml 101 ml Intake Oral 480 ml 960 ml 560 ml IV Total 101 ml # Voids 2 6 2 # Bowel Movements 1 1 Result Diagram: 08/20/16 1255 08/21/16 0735 Objective Remarks GENERAL: This is a well-nourished, well-developed patient, in no apparent distress. SKIN: No rashes, warm and dry HEAD: Atraumatic. Normocephalic. EYES: Pupils equal round and reactive. Extraocular motions intact. No scleral icterus. ENT: Nose without bleeding, or drainage, Airway patent. NECK: Trachea midline. Supple CARDIOVASCULAR: Regular rate and rhythm without murmurs, gallops, or rubs. RESPIRATORY: Fair air entry bilaterally. No wheezes, rales, or rhonchi. GASTROINTESTINAL: Abdomen soft, non-tender, nondistended. Positive bowel sounds MUSCULOSKELETAL: Lower Extremities without clubbing, cyanosis, or edema. Pedal pulses appreciated, right upper extremity swelling noted NEUROLOGICAL: Awake and alert. Moves all extremity. Normal speech.no focal neurological deficit Procedures bedside I and D A/P Problem List: (1) right forearm cellulitis and abscess Status: Acute (2) IVDA Status: Acute Assessment and Plan This is a 41-year-old male who comes in complaining of pain and swelling to his right arm associated with fever. He does admit to injecting Dilaudid in his arm. Has history of MRSA. Right forearm cellulitis/abscess status post I and D and IV clindamycin in the emergency department with MSSA/GPC bacteremia. Possible history of MRSA. CT shows cellulitis/phlegmon and possible infected thrombophlebitis. Patient aware he is not going to be given IV narcotics. Warm compresses and elevation of the right upper extremity. Repeat blood culture negative to date. Appreciate ID consultation, recommending 2-D echo which came back negative for vegetation, will defer further investigation including PAULETTE to ID Hypertension. Stable continue clonidine with as needed antihypertensives Polysubstance abuse. UDS with cocaine. Patient counseled. Low risk for DVT Tiarra Pinto MD August 24, 2016 11:11
[2016-08-24 12:11] VITALS: BP 134/74; PULSE 72; RESP 15; TEMP 97.8; O2SAT 100
--- NOTE | 2016-08-24 13:30 | HHI.IDPN ---
Note Infectious Disease Note ID COVERAGE: Notes reviewed. Patient notes pain in r. forearm. No erythema. Denies chills. Blood culture 08/22 no growth 2 days. 2Decho - NO VEGETATIONS. Patient with h/o IVDU came in with right forearm swelling and pain. I & D of right forearm abscess done. Wound culture growing MSSA and blood culture 07/19. Past Family Social History Coded Allergies: No Known Allergies (Verified , 08/20/16) Current Medications Medications (Trade) Dose Ordered Sig/Emeterio Route PRN Reason Start Time Stop Time Status Last Admin Dose Admin Clonidine (Catapres) 0.1 mg BID PO 08/20/16 21:00 08/24/16 08:57 Lorazepam (Ativan Inj) 1 mg Q6H PRN IV PUSH agitation or withdrawal sxs 08/20/16 16:00 08/23/16 13:28 Enalaprilat (Vasotec Inj) 1.25 mg Q6H PRN IV SBP> OR = 180, DBP> OR = 100 08/20/16 16:00 Clonidine (Catapres) 0.1 mg Q6H PRN PO SBP> OR = 180, DBP> OR = 100 08/20/16 16:00 Acetaminophen (Tylenol) 650 mg Q4H PRN PO TEMP > 100.4 08/20/16 16:00 08/21/16 00:12 Ondansetron HCl (Zofran Inj) 4 mg Q6H PRN IVP NAUSEA OR VOMITING 08/20/16 16:00 Bisacodyl (Dulcolax Supp) 10 mg DAILY PRN RECTAL CONSTIPATION 08/20/16 16:00 Acetaminophen (Tylenol) 650 mg Q6H PRN PO PAIN SCALE 1 TO 2 08/20/16 16:00 Ketorolac Tromethamine (Toradol Inj) 15 mg Q6H PRN IVP Pain 3-5 08/20/16 16:00 08/25/16 15:59 08/23/16 00:07 Ketorolac Tromethamine (Toradol Inj) 30 mg Q6H PRN IVP Pain 6-10 08/20/16 16:00 08/25/16 15:59 08/22/16 12:54 Naloxone HCl (Narcan Inj) 0.4 mg UNSCH PRN IV SEE LABEL COMMENTS 08/20/16 16:00 Patient Own Medication PT OWN MED: (Buprenorphine 8MG-Nalox... DAILY PRN SL WITHDRAWAL 08/20/16 18:15 08/24/16 08:56 Ibuprofen (Motrin) 400 mg Q6H PRN PO TEMP > 100.4 08/21/16 08:00 Neomycin/ Polymyxin/ Bacitracin 1 applic 1 applic DAILY TOPICAL 08/22/16 12:00 08/24/16 08:57 Cefazolin Sodium/ Sodium Chloride (Ancef Inj/NS Inj) 100 ml @ 200 mls/hr Q8H IV 08/23/16 09:00 08/24/16 08:57 Physical Exam Vital Signs Date Time Temp Pulse Resp B/P Pulse Ox O2 Delivery O2 Flow Rate FiO2 08/24/16 12:11 97.8 72 15 134/74 100 08/24/16 08:59 96.2 61 15 143/87 100 08/24/16 06:00 08/24/16 00:00 97.9 60 18 145/97 99 08/23/16 20:00 97.5 76 18 124/74 100 08/23/16 20:00 97.5 76 18 124/74 100 08/23/16 16:00 97.0 68 20 133/77 98 08/23/16 08/23/16 08/24/16 15:00 23:00 07:00 Intake Total 960 ml 560 ml 101 ml Balance 960 ml 560 ml 101 ml Intake Oral 960 ml 560 ml IV Total 101 ml # Voids 6 2 # Bowel Movements 1 1 Microbiology Date/Time Procedure Status Source Growth 08/22/16 10:20 Aerobic Blood Culture - Preliminary Resulted Blood Peripheral NO GROWTH IN 2 DAYS 08/22/16 10:20 Anaerobic Blood Culture - Preliminary Resulted Blood Peripheral NO GROWTH IN 2 DAYS 08/22/16 10:30 Aerobic Blood Culture - Preliminary Resulted Blood Peripheral NO GROWTH IN 2 DAYS 08/22/16 10:30 Anaerobic Blood Culture - Preliminary Resulted Blood Peripheral NO GROWTH IN 2 DAYS 08/23/16 07:45 Gram Stain - Final Resulted Wound Foot 08/23/16 07:45 Wound Culture Resulted Wound Foot Pending Date/Time Procedure Status Source Growth 08/22/16 10:30 Aerobic Blood Culture Received Blood Peripheral Pending 08/22/16 10:30 Anaerobic Blood Culture Received Blood Peripheral Pending 08/20/16 15:20 Gram Stain - Final Complete Wound Arm 08/20/16 15:20 Wound Culture - Final Complete Staphylococcus Aureus 08/20/16 15:05 Aerobic Blood Culture - Preliminary Resulted Blood Peripheral Gram Positive Cocci 08/20/16 15:05 Anaerobic Blood Culture - Preliminary Resulted Staphylococcus Aureus GENERAL: No acute distress. HEENT: EOMI, No icterus. No conjunctival erythema. NECK: Supple. No adenopathy. LUNGS: Clear breath sounds. CARDIAC: Regular rate and rhythm.no audible murmurs. ABDOMEN: Soft, non tender. EXTREMITIES: No CCE. Area of swelling at the right volar forearm midway between elbow and wrist. SKIN: No rash. NEURO: Non focal. PSYCH: Calm and cooperative. Assessment and Plan Problem List: (1) right forearm cellulitis and abscess Status: Acute (2) IVDA Status: Acute (3) Bacteremia MSSA. High Grade. Rule out endocarditis. Status: Acute Plan: Continue IV Cefazolin 2 g IV q8hrs Follow repeat blood cultures to check if he is clearing the bacteremia. PAULETTE to evaluate for endocarditis. Raphael Stuart MD August 24, 2016 13:30
[2016-08-24] MEDS: KETOROLAC TROMETHAMINE 30 MG/ML (IVP) VIAL IVP PRN ×2 (14:58→21:13)
[2016-08-24 17:10] VITALS: BP 133/80; PULSE 56; RESP 14; TEMP 97.3; O2SAT 100
[2016-08-24] MEDS: LORazepam 2 MG/ML VIAL IV PUSH PRN (17:48)
[2016-08-24 20:05] VITALS: BP 141/94; PULSE 62; RESP 16; TEMP 97.8; O2SAT 100
[2016-08-25] VITALS: BP 115/66; PULSE 73; RESP 18; TEMP 96.8; O2SAT 97
[2016-08-25 04:00] VITALS: BP 111/67; PULSE 60; RESP 18; TEMP 97.5; O2SAT 99
[2016-08-25 08:05] VITALS: BP 155/69; PULSE 70; RESP 16; TEMP 97.4; O2SAT 99
--- NOTE | 2016-08-25 08:19 | HHI.PR ---
Subjective Remarks This is a pleasant 41 y/o Male who continue receiving treatment for Right arm cellulitis patient stable no complaint, wants to go home, discussed with his Mother who states the family continue to struggle with the patient's Behavior but he continue with IDU. Objective Vital Signs Date Time Temp Pulse Resp B/P Pulse Ox O2 Delivery O2 Flow Rate FiO2 08/25/16 04:00 97.5 60 18 111/67 99 08/25/16 00:00 96.8 73 18 115/66 97 08/24/16 20:05 97.8 62 16 141/94 100 08/24/16 17:10 97.3 56 14 133/80 100 08/24/16 16:03 18 08/24/16 12:11 97.8 72 15 134/74 100 08/24/16 08:59 96.2 61 15 143/87 100 I/O 08/24/16 08/24/16 08/24/16 08/25/16 08/25/16 08/25/16 07:00 15:00 23:00 07:00 15:00 23:00 Intake Total 101 ml 1440 ml 120 ml Balance 101 ml 1440 ml 120 ml Intake Oral 1440 ml 120 ml IV Total 101 ml # Voids 7 2 # Bowel Movements 2 0 Result Diagram: 08/21/16 0735 Imaging Last Impressions Upper Extremity CT 08/20/16 0000 Signed Impressions: Service Date/Time: Saturday, August 20, 2016 13:32 - CONCLUSION: 1. Grossly abnormal examination demonstrating abnormal enhancement along the cephalic vein with a focal area of enlargement at the level of the mid forearm with significant induration and some fluid within the superficial and deep subcutaneous soft tissues. Primary consideration would be cellulitis/phlegmon and possible infected thrombophlebitis. There are likely small amounts of drainable fluid within this as well however, no well-defined, enhancing pocket for drain placement is identified. Andrew Fernandez MD Procedures No procedures performed. Other Results Laboratory Tests Test 08/21/16 08/21/16 08/21/16 00:46 07:35 13:55 Urine Opiates Screen NEG Urine Barbiturates Screen NEG Urine Amphetamines Screen NEG Urine Benzodiazepines Screen NEG Urine Cocaine Screen POS Urine Cannabinoids Screen NEG Sodium Level 138 MEQ/L Potassium Level 4.2 MEQ/L Chloride Level 103 MEQ/L Carbon Dioxide Level 30.3 MEQ/L Anion Gap 5 MEQ/L Blood Urea Nitrogen 14 MG/DL Creatinine 0.70 MG/DL Estimat Glomerular Filtration 126 ML/MIN Rate Random Glucose 107 MG/DL Calcium Level 8.4 MG/DL Vancomycin Level Trough 6.8 MCG/ML Objective Remarks GENERAL: This is a well-nourished, well-developed patient, in no apparent distress. SKIN: No rashes, warm and dry HEAD: Atraumatic. Normocephalic. EYES: Pupils equal round and reactive. Extraocular motions intact. No scleral icterus. ENT: Nose without bleeding, or drainage, Airway patent. NECK: Trachea midline. Supple CARDIOVASCULAR: Regular rate and rhythm without murmurs, gallops, or rubs. RESPIRATORY: Fair air entry bilaterally. No wheezes, rales, or rhonchi. GASTROINTESTINAL: Abdomen soft, non-tender, nondistended. Positive bowel sounds MUSCULOSKELETAL: Lower Extremities without clubbing, cyanosis, or edema. Improved swelling on Right upper extremity. NEUROLOGICAL: Awake and alert. Moves all extremity. Normal speech.no focal neurological deficit Medications and IVs Current Medications Medications (Trade) Dose Ordered Sig/Emeterio Route Start Time Stop Time Status Last Admin (Catapres) 0.1 mg BID PO 08/20/16 21:00 08/24/16 21:06 (Ativan Inj) 1 mg Q6H PRN IV PUSH 08/20/16 16:00 08/24/16 17:48 (Vasotec Inj) 1.25 mg Q6H PRN IV 08/20/16 16:00 (Catapres) 0.1 mg Q6H PRN PO 08/20/16 16:00 (Tylenol) 650 mg Q4H PRN PO 08/20/16 16:00 08/21/16 00:12 (Zofran Inj) 4 mg Q6H PRN IVP 08/20/16 16:00 (Dulcolax Supp) 10 mg DAILY PRN RECTAL 08/20/16 16:00 (Tylenol) 650 mg Q6H PRN PO 08/20/16 16:00 (Toradol Inj) 15 mg Q6H PRN IVP 08/20/16 16:00 08/25/16 15:59 08/23/16 00:07 (Toradol Inj) 30 mg Q6H PRN IVP 08/20/16 16:00 08/25/16 15:59 08/24/16 21:13 (Narcan Inj) 0.4 mg UNSCH PRN IV 08/20/16 16:00 Patient Own Medication PT OWN MED: (Buprenorphine 8MG-Nalox... DAILY PRN SL 08/20/16 18:15 08/24/16 08:56 (Motrin) 400 mg Q6H PRN PO 08/21/16 08:00 Neomycin/ Polymyxin/ Bacitracin 1 applic 1 applic DAILY TOPICAL 08/22/16 12:00 08/24/16 08:57 (Ancef Inj/NS Inj) 100 ml @ 200 mls/hr Q8H IV 08/23/16 09:00 08/25/16 01:15 A/P Assessment and Plan (1) right forearm cellulitis and abscess Status: Acute (2) IVDA Status: Acute 1. Right forearm Cellulitis and abscess status post I and D and Clindamycin in Emergency Room, with MSSA/GPC bacteremia. Possible history of MRSA. CT shows cellulitis/phlegmon and possible infected thrombophlebitis. Patient aware he is not going to be given IV narcotics. Warm compresses and elevation of the right upper extremity. Repeat blood culture negative to date. ID specialist following, recommended Echocardiogram came negative for vegetations, Continue Cefazolin. 2 g IV q 8 hours. follow and repeat cultures until clear bacteremia. PAULETTE to evaluate for Endocarditis. 2. Hypertension. Stable continue clonidine with as needed antihypertensives 3. Polysubstance abuse. UDS with cocaine. Patient counseled. Discussed with patient and his Mother and nurse. DVT prophylaxis with SCDs Discharge Planning Once cleared by ID specialist. Griffin Manning MD August 25, 2016 08:19
[2016-08-25] MEDS: NEOMYCIN/POLYMYXIN/BACITRACIN OINT 15 GM TUBE TOPICAL SCH (09:00)
[2016-08-25] MEDS: cloNIDine HCL 0.1 MG TAB PO SCH ×2 (09:33→21:44)
[2016-08-25 12:05] VITALS: BP 134/77; PULSE 72; RESP 16; TEMP 98; O2SAT 100
--- NOTE | 2016-08-25 13:59 | MB ---
cc: DEEP SU DATE OF CONSULTATION 08/25/2016 REASON FOR CONSULTATION Mr. Ma is a 41 year-old white male who has a history of hypertension. He has a history of IV drug use and he came in with forearm edema and pain. He also had high fevers. He had I&D of right forearm abscess. His wound culture grew methicillin-sensitive Staphylococcus aureus and his blood cultures were also positive. He was referred for transesophageal echocardiogram to evaluate for endocarditis. PAST MEDICAL HISTORY Positive for: 1. Hypertension 2. History of tendon surgery. MEDICATIONS Include Clonidine. ALLERGIES None SOCIAL HISTORY The patient drinks beer socially. He is a smoker and he has a history of IV drug use. FAMILY HISTORY Negative for heart disease. REVIEW OF SYSTEMS Otherwise negative. PHYSICAL EXAM Blood pressure 155/69, pulse 70 and regular. HEAD, EYES, EARS, NOSE, AND THROAT: Negative, 2+carotid upstrokes. No bruits. LUNGS: Clear. HEART: Regular with no murmur, gallop, or rub. ABDOMEN: Soft, no bruits. EXTREMITIES: Without edema. 2+ distal pulses. There is right forearm erythema, edema and swelling. NEUROLOGIC: Grossly nonfocal. Echocardiogram showed preserved left ventricular systolic function. LABS White blood cells 7.0, hemoglobin 11.9, potassium 4.2, creatinine 0.7. DIAGNOSIS 1. Right forearm cellulitis and abscess 2. MSSA/GPC bacteremia 3. IV drug use 4. Hypertension DISPOSITION Mr. Ma will underwent transesophageal echocardiogram today to evaluate for endocarditis. He understands the risks and benefits and wishes to proceed. We will continue antibiotics as outlined by ID service. MD ILIANA Arellano/SHAKILA /1:08 PM /1:45 PM JAMIA
[2016-08-25 16:05] VITALS: BP 118/56; PULSE 68; RESP 16; TEMP 98.1; O2SAT 98
[2016-08-25] MEDS: LORazepam 2 MG/ML VIAL IV PUSH PRN (17:23)
[2016-08-25 20:00] VITALS: BP 132/76; PULSE 71; RESP 16; TEMP 98.1; O2SAT 99
[2016-08-26] VITALS: BP 124/63; PULSE 54; RESP 16; TEMP 97.9; O2SAT 98
[2016-08-26] MEDS: LORazepam 2 MG/ML VIAL IV PUSH PRN ×4 (00:18→22:32)
[2016-08-26 04:00] VITALS: BP 108/58; PULSE 59; RESP 16; TEMP 98.2; O2SAT 99
[2016-08-26 08:00] VITALS: BP 133/60; PULSE 56; RESP 18; TEMP 98.1; O2SAT 99
[2016-08-26] MEDS: NEOMYCIN/POLYMYXIN/BACITRACIN OINT 15 GM TUBE TOPICAL SCH (09:00)
[2016-08-26] MEDS: cloNIDine HCL 0.1 MG TAB PO SCH ×2 (09:49→22:31)
--- NOTE | 2016-08-26 11:19 | HHI.IDPN ---
Note Infectious Disease Note ID COVERAGE: Notes reviewed. Patient notes pain in r. wrist. Denies chills. Denies other areas of pain. Blood culture 08/22 still has staph aureus. 2Decho - NO VEGETATIONS. MRSA reported on swab wound culture of L. foot from 08/23. Patient has no foot wound. PAULETTE result pending. Patient with h/o IVDU came in with right forearm swelling and pain. I & D of right forearm abscess done. Wound culture growing MSSA and blood culture 07/19. Past Family Social History Coded Allergies: No Known Allergies (Verified , 08/20/16) Current Medications Medications (Trade) Dose Ordered Sig/Emeterio Route PRN Reason Start Time Stop Time Status Last Admin Dose Admin Clonidine (Catapres) 0.1 mg BID PO 08/20/16 21:00 08/26/16 09:49 Lorazepam (Ativan Inj) 1 mg Q6H PRN IV PUSH agitation or withdrawal sxs 08/20/16 16:00 08/26/16 09:49 Enalaprilat (Vasotec Inj) 1.25 mg Q6H PRN IV SBP> OR = 180, DBP> OR = 100 08/20/16 16:00 Clonidine (Catapres) 0.1 mg Q6H PRN PO SBP> OR = 180, DBP> OR = 100 08/20/16 16:00 Acetaminophen (Tylenol) 650 mg Q4H PRN PO TEMP > 100.4 08/20/16 16:00 08/21/16 00:12 Ondansetron HCl (Zofran Inj) 4 mg Q6H PRN IVP NAUSEA OR VOMITING 08/20/16 16:00 Bisacodyl (Dulcolax Supp) 10 mg DAILY PRN RECTAL CONSTIPATION 08/20/16 16:00 Acetaminophen (Tylenol) 650 mg Q6H PRN PO PAIN SCALE 1 TO 2 08/20/16 16:00 Naloxone HCl (Narcan Inj) 0.4 mg UNSCH PRN IV SEE LABEL COMMENTS 08/20/16 16:00 Patient Own Medication PT OWN MED: (Buprenorphine 8MG-Nalox... DAILY PRN SL WITHDRAWAL 08/20/16 18:15 08/24/16 08:56 Ibuprofen (Motrin) 400 mg Q6H PRN PO TEMP > 100.4 08/21/16 08:00 Neomycin/ Polymyxin/ Bacitracin 1 applic 1 applic DAILY TOPICAL 08/22/16 12:00 08/24/16 08:57 Cefazolin Sodium/ Sodium Chloride (Ancef Inj/NS Inj) 100 ml @ 200 mls/hr Q8H IV 08/23/16 09:00 08/26/16 09:48 Physical Exam Vital Signs Date Time Temp Pulse Resp B/P Pulse Ox O2 Delivery O2 Flow Rate FiO2 08/26/16 08:00 98.1 56 18 133/60 99 08/26/16 04:00 98.2 59 16 108/58 99 08/26/16 00:00 97.9 54 16 124/63 98 08/25/16 20:00 98.1 71 16 132/76 99 08/25/16 16:05 98.1 68 16 118/56 98 08/25/16 12:05 98.0 72 16 134/77 100 08/25/16 08/25/16 08/26/16 15:00 23:00 07:00 Intake Total 240 ml 480 ml 240 ml Balance 240 ml 480 ml 240 ml Intake Oral 240 ml 480 ml 240 ml # Voids 6 2 1 # Bowel Movements 1 0 0 Date/Time Procedure Status Source Growth 08/22/16 10:30 Aerobic Blood Culture Received Blood Peripheral Pending 08/22/16 10:30 Anaerobic Blood Culture Received Blood Peripheral Pending 08/20/16 15:20 Gram Stain - Final Complete Wound Arm 08/20/16 15:20 Wound Culture - Final Complete Staphylococcus Aureus 08/20/16 15:05 Aerobic Blood Culture - Preliminary Resulted Blood Peripheral Gram Positive Cocci 08/20/16 15:05 Anaerobic Blood Culture - Preliminary Resulted Staphylococcus Aureus PHYSICAL EXAM: GENERAL: No acute distress. HEENT: EOMI, No icterus. No conjunctival erythema. NECK: Supple. No adenopathy. LUNGS: Clear breath sounds. CARDIAC: Regular rate and rhythm.no audible murmurs. ABDOMEN: Soft, non tender. EXTREMITIES: No CCE. Area of swelling at the right volar forearm midway between elbow and wrist. Tenderness and swelling at the r. wrist. SKIN: No rash. NEURO: Non focal. PSYCH: Calm and cooperative. Assessment and Plan Problem List: (1) right forearm cellulitis and abscess Status: Acute (2) IVDA Status: Acute (3) Bacteremia MSSA. High Grade. Rule out endocarditis. Status: Acute Plan: Continue IV Cefazolin 2 g IV q8hrs Repeat blood cultures to check if he is clearing the bacteremia. Ordered. Follow PAULETTE repot to evaluate for endocarditis. (4) Probable septic arthritis of the r. wrist from bacteremia. Plan as per #3. MRSA erroneously reported on the patient per my discussion with the nurse Anabel who sent the culture. She notified me that microbiology was notified and that the foot culture was on a different patient and was mislabelled. Based on that communication this patient does not have MRSA. I will not start him on antibiotics focused on treatment of MRSA since he has not foot wound. Raphael Stuart MD August 26, 2016 11:19
[2016-08-26 12:00] VITALS: BP 112/62; PULSE 80; RESP 18; TEMP 97.6; O2SAT 96
--- NOTE | 2016-08-26 12:55 | HHI.PR ---
Subjective Remarks This is a pleasant 41 y/o Male who continue receiving treatment for Right arm cellulitis patient stable no complaint, wants to go home, discussed with his Mother who states the family continue to struggle with the patient's Behavior but he continue with IDU. 08/26: Discussed with patient and his Mother in the room again, also nurse Miss Pickard also with ID specialist doctor Dontfraid he wants to continue Cefazolin 2 grams IV every 8 hours, repeat blood cultures to check if he is clearing the bacteremia, follow PAULETTE report to evaluate for Endocarditis. wrong MRSA test sent as per ID. Objective Vital Signs Date Time Temp Pulse Resp B/P Pulse Ox O2 Delivery O2 Flow Rate FiO2 08/26/16 12:00 97.6 80 18 112/62 96 08/26/16 08:00 98.1 56 18 133/60 99 08/26/16 04:00 98.2 59 16 108/58 99 08/26/16 00:00 97.9 54 16 124/63 98 08/25/16 20:00 98.1 71 16 132/76 99 08/25/16 16:05 98.1 68 16 118/56 98 I/O 08/25/16 08/25/16 08/25/16 08/26/16 08/26/16 08/26/16 07:00 15:00 23:00 07:00 15:00 23:00 Intake Total 120 ml 240 ml 480 ml 240 ml Balance 120 ml 240 ml 480 ml 240 ml Intake Oral 120 ml 240 ml 480 ml 240 ml # Voids 2 6 2 1 # Bowel Movements 0 1 0 0 Imaging Last Impressions Upper Extremity CT 08/20/16 0000 Signed Impressions: Service Date/Time: Saturday, August 20, 2016 13:32 - CONCLUSION: 1. Grossly abnormal examination demonstrating abnormal enhancement along the cephalic vein with a focal area of enlargement at the level of the mid forearm with significant induration and some fluid within the superficial and deep subcutaneous soft tissues. Primary consideration would be cellulitis/phlegmon and possible infected thrombophlebitis. There are likely small amounts of drainable fluid within this as well however, no well-defined, enhancing pocket for drain placement is identified. Andrew Fernandez MD Procedures PAULETTE awaiting for result. Objective Remarks GENERAL: This is a well-nourished, well-developed patient, in no apparent distress. SKIN: No rashes, warm and dry HEAD: Atraumatic. Normocephalic. EYES: Pupils equal round and reactive. Extraocular motions intact. No scleral icterus. ENT: Nose without bleeding, or drainage, Airway patent. NECK: Trachea midline. Supple CARDIOVASCULAR: Regular rate and rhythm without murmurs, gallops, or rubs. RESPIRATORY: Fair air entry bilaterally. No wheezes, rales, or rhonchi. GASTROINTESTINAL: Abdomen soft, non-tender, nondistended. Positive bowel sounds MUSCULOSKELETAL: Lower Extremities without clubbing, cyanosis, or edema. Improved swelling on Right upper extremity. NEUROLOGICAL: Awake and alert. Moves all extremity. Normal speech.no focal neurological deficit Medications and IVs Current Medications Medications (Trade) Dose Ordered Sig/Emeterio Route Start Time Stop Time Status Last Admin (Catapres) 0.1 mg BID PO 08/20/16 21:00 08/26/16 09:49 (Ativan Inj) 1 mg Q6H PRN IV PUSH 08/20/16 16:00 08/26/16 09:49 (Vasotec Inj) 1.25 mg Q6H PRN IV 08/20/16 16:00 (Catapres) 0.1 mg Q6H PRN PO 08/20/16 16:00 (Tylenol) 650 mg Q4H PRN PO 08/20/16 16:00 08/21/16 00:12 (Zofran Inj) 4 mg Q6H PRN IVP 08/20/16 16:00 (Dulcolax Supp) 10 mg DAILY PRN RECTAL 08/20/16 16:00 (Tylenol) 650 mg Q6H PRN PO 08/20/16 16:00 (Narcan Inj) 0.4 mg UNSCH PRN IV 08/20/16 16:00 Patient Own Medication PT OWN MED: (Buprenorphine 8MG-Nalox... DAILY PRN SL 08/20/16 18:15 08/24/16 08:56 Ibuprofen 400 mg 400 mg Q6H PRN PO 08/21/16 08:00 (Ancef Inj/NS Inj) 100 ml @ 200 mls/hr Q8H IV 08/23/16 09:00 08/26/16 09:48 A/P Assessment and Plan (1) right forearm cellulitis and abscess Status: Acute (2) IVDA Status: Acute 1. Right forearm Cellulitis and abscess status post I and D and Clindamycin in Emergency Room, with MSSA/GPC bacteremia. CT shows cellulitis/phlegmon and possible infected thrombophlebitis. Warm compresses and elevation of the right upper extremity. ID specialist following, recommended Echocardiogram came negative for vegetations, Continue Cefazolin. 2 g IV q 8 hours. PAULETTE to evaluate for Endocarditis. MSSA positive on Cefazolin. 2. Hypertension. Controlled. 3. Polysubstance abuse. UDS with cocaine. Patient counseled. Discussed with patient and his Mother and nurse Miss Pickard all questions answered to the best of my abilities. Patient not authorized to go outside of the Hospital, he try to leave the unit and had to be stopped by nurse. DVT prophylaxis with SCDs Discharge Planning Once cleared by ID specialist. Griffin Manning MD August 26, 2016 12:55
[2016-08-26 16:00] VITALS: BP 132/65; PULSE 70; RESP 20; TEMP 98.1; O2SAT 98
[2016-08-26 20:00] VITALS: BP 127/62; PULSE 71; RESP 17; TEMP 98.5; O2SAT 98
--- NOTE | 2016-08-26 20:04 | PD.CARD.PN ---
Subjective Subjective Remarks No CP or SOB, c/o UE pain Objective Medications Current Medications Medications (Trade) Dose Ordered Sig/Emeterio Route Start Time Stop Time Status Last Admin (Catapres) 0.1 mg BID PO 08/20/16 21:00 08/26/16 09:49 (Ativan Inj) 1 mg Q6H PRN IV PUSH 08/20/16 16:00 08/26/16 16:18 (Vasotec Inj) 1.25 mg Q6H PRN IV 08/20/16 16:00 (Catapres) 0.1 mg Q6H PRN PO 08/20/16 16:00 (Tylenol) 650 mg Q4H PRN PO 08/20/16 16:00 08/21/16 00:12 (Zofran Inj) 4 mg Q6H PRN IVP 08/20/16 16:00 (Dulcolax Supp) 10 mg DAILY PRN RECTAL 08/20/16 16:00 (Tylenol) 650 mg Q6H PRN PO 08/20/16 16:00 (Narcan Inj) 0.4 mg UNSCH PRN IV 08/20/16 16:00 Patient Own Medication PT OWN MED: (Buprenorphine 8MG-Nalox... DAILY PRN SL 08/20/16 18:15 08/24/16 08:56 Ibuprofen 400 mg 400 mg Q6H PRN PO 08/21/16 08:00 (Ancef Inj/NS Inj) 100 ml @ 200 mls/hr Q8H IV 08/23/16 09:00 08/26/16 16:17 Vital Signs / I&O Vital Signs Date Time Temp Pulse Resp B/P Pulse Ox O2 Delivery O2 Flow Rate FiO2 08/26/16 16:00 98.1 70 20 132/65 98 08/26/16 12:00 97.6 80 18 112/62 96 08/26/16 08:00 98.1 56 18 133/60 99 08/26/16 04:00 98.2 59 16 108/58 99 08/26/16 00:00 97.9 54 16 124/63 98 I/O 08/25/16 08/25/16 08/25/16 08/26/16 08/26/16 08/26/16 07:00 15:00 23:00 07:00 15:00 23:00 Intake Total 120 ml 240 ml 480 ml 240 ml 600 ml Balance 120 ml 240 ml 480 ml 240 ml 600 ml Intake Oral 120 ml 240 ml 480 ml 240 ml 600 ml # Voids 2 6 2 1 3 # Bowel Movements 0 1 0 0 1 Physical Exam GENERAL: IN NAD SKIN: Warm and dry. HEAD: Normocephalic. EYES: No scleral icterus. No injection or drainage. NECK: Supple, trachea midline. No JVD or lymphadenopathy. CARDIOVASCULAR: Regular rate and rhythm without murmurs, gallops, or rubs. RESPIRATORY: Breath sounds equal bilaterally. No accessory muscle use. GASTROINTESTINAL: Abdomen soft, non-tender, nondistended. MUSCULOSKELETAL: No cyanosis, or edema. Imaging Last Impressions Upper Extremity CT 08/20/16 0000 Signed Impressions: Service Date/Time: Saturday, August 20, 2016 13:32 - CONCLUSION: 1. Grossly abnormal examination demonstrating abnormal enhancement along the cephalic vein with a focal area of enlargement at the level of the mid forearm with significant induration and some fluid within the superficial and deep subcutaneous soft tissues. Primary consideration would be cellulitis/phlegmon and possible infected thrombophlebitis. There are likely small amounts of drainable fluid within this as well however, no well-defined, enhancing pocket for drain placement is identified. Andrew Fernandez MD Assessment and Plan Problem List: (1) Bacteremia (2) IVDA (3) right forearm cellulitis and abscess Assessment and Plan PAULETTE with no evidence of endocarditis. Continue abx's as per ID. Stable from cardiac standpoint. Jose Moore MD August 26, 2016 20:04
[2016-08-27 00:32] VITALS: BP 121/58; PULSE 56; RESP 18; TEMP 97.9; O2SAT 98
[2016-08-27 04:00] VITALS: BP 106/62; PULSE 67; RESP 16; TEMP 98.4; O2SAT 100
[2016-08-27 08:00] VITALS: BP 134/71; PULSE 72; RESP 16; TEMP 97.4; O2SAT 100
[2016-08-27] MEDS: cloNIDine HCL 0.1 MG TAB PO SCH ×2 (08:43→20:51)
[2016-08-27] MEDS: LORazepam 2 MG/ML VIAL IV PUSH PRN ×2 (09:54→16:20)
--- NOTE | 2016-08-27 11:30 | HHI.PR ---
Subjective Remarks This is a pleasant 41 y/o Male who continue receiving treatment for Right arm cellulitis patient stable no complaint, wants to go home, discussed with his Mother who states the family continue to struggle with the patient's Behavior but he continue with IDU. 08/26: Discussed with patient and his Mother in the room again, also nurse Miss Pickard also with ID specialist doctor Dontfid he wants to continue Cefazolin 2 grams IV every 8 hours, repeat blood cultures to check if he is clearing the bacteremia, follow PAULETTE report to evaluate for Endocarditis. wrong MRSA test sent as per ID. 08/27: Seen in his bedroom, and discussed with nurse miss Jacobs, PAULETTE no Endocarditis no nausea, vomit or diarrhea. awaiting final recommendations by ID for discharge. Objective Vital Signs Date Time Temp Pulse Resp B/P Pulse Ox O2 Delivery O2 Flow Rate FiO2 08/27/16 08:00 97.4 72 16 134/71 100 08/27/16 04:00 98.4 67 16 106/62 100 08/27/16 00:32 97.9 56 18 121/58 98 08/26/16 20:00 98.5 71 17 127/62 98 08/26/16 16:00 98.1 70 20 132/65 98 08/26/16 12:00 97.6 80 18 112/62 96 I/O 08/26/16 08/26/16 08/26/16 08/27/16 08/27/16 08/27/16 07:00 15:00 23:00 07:00 15:00 23:00 Intake Total 240 ml 600 ml 200 ml 4 ml Output Total 600 ml Balance 240 ml 600 ml -400 ml 4 ml Intake Oral 240 ml 600 ml 200 ml 4 ml Output Urine Total 600 ml # Voids 1 3 3 # Bowel Movements 0 1 0 0 Imaging Last Impressions Upper Extremity CT 08/20/16 0000 Signed Impressions: Service Date/Time: Saturday, August 20, 2016 13:32 - CONCLUSION: 1. Grossly abnormal examination demonstrating abnormal enhancement along the cephalic vein with a focal area of enlargement at the level of the mid forearm with significant induration and some fluid within the superficial and deep subcutaneous soft tissues. Primary consideration would be cellulitis/phlegmon and possible infected thrombophlebitis. There are likely small amounts of drainable fluid within this as well however, no well-defined, enhancing pocket for drain placement is identified. Andrew Fernandez MD Procedures PAULETTE Negative. Other Results No new laboratory. Objective Remarks GENERAL: This is a well-nourished, well-developed patient, in no apparent distress. SKIN: No rashes, warm and dry HEAD: Atraumatic. Normocephalic. EYES: Pupils equal round and reactive. Extraocular motions intact. No scleral icterus. ENT: Nose without bleeding, or drainage, Airway patent. NECK: Trachea midline. Supple CARDIOVASCULAR: Regular rate and rhythm without murmurs, gallops, or rubs. RESPIRATORY: Fair air entry bilaterally. No wheezes, rales, or rhonchi. GASTROINTESTINAL: Abdomen soft, non-tender, nondistended. Positive bowel sounds MUSCULOSKELETAL: Lower Extremities without clubbing, cyanosis, or edema. Improved swelling on Right upper extremity. NEUROLOGICAL: Awake and alert. Moves all extremity. Normal speech.no focal neurological deficit Medications and IVs Current Medications Medications (Trade) Dose Ordered Sig/Emeterio Route Start Time Stop Time Status Last Admin (Catapres) 0.1 mg BID PO 08/20/16 21:00 08/27/16 08:43 (Ativan Inj) 1 mg Q6H PRN IV PUSH 08/20/16 16:00 08/27/16 09:54 (Vasotec Inj) 1.25 mg Q6H PRN IV 08/20/16 16:00 (Catapres) 0.1 mg Q6H PRN PO 08/20/16 16:00 (Tylenol) 650 mg Q4H PRN PO 08/20/16 16:00 08/21/16 00:12 (Zofran Inj) 4 mg Q6H PRN IVP 08/20/16 16:00 (Dulcolax Supp) 10 mg DAILY PRN RECTAL 08/20/16 16:00 (Tylenol) 650 mg Q6H PRN PO 08/20/16 16:00 (Narcan Inj) 0.4 mg UNSCH PRN IV 08/20/16 16:00 Patient Own Medication PT OWN MED: (Buprenorphine 8MG-Nalox... DAILY PRN SL 08/20/16 18:15 08/24/16 08:56 Ibuprofen 400 mg 400 mg Q6H PRN PO 08/21/16 08:00 (Ancef Inj/NS Inj) 100 ml @ 200 mls/hr Q8H IV 08/23/16 09:00 08/27/16 08:44 A/P Assessment and Plan (1) right forearm cellulitis and abscess Status: Acute (2) IVDA Status: Acute 1. Right forearm Cellulitis and abscess status post I and D and Clindamycin in Emergency Room, with MSSA/GPC bacteremia. CT shows cellulitis/phlegmon and possible infected thrombophlebitis. Warm compresses and elevation of the right upper extremity. ID specialist following, TTE and PAULETTE negative for vegetations, Continue Cefazolin. 2 g IV q 8 hours. MSSA positive on Cefazolin. 2. Hypertension. Controlled. 3. Polysubstance abuse. UDS with cocaine. Patient counseled. Discussed with patient and Nurse miss Jacobs all questions answered to the best of my abilities. DVT prophylaxis with SCDs Discharge Planning Once cleared by ID specialist. Griffin Manning MD August 27, 2016 11:30
[2016-08-27 12:00] VITALS: BP 128/69; PULSE 71; RESP 16; TEMP 97; O2SAT 99
[2016-08-27] MEDS: KETOROLAC TROMETHAMINE 10 MG TAB PO SCH ×3 (13:50→23:45)
[2016-08-27 16:00] VITALS: BP 141/73; PULSE 78; RESP 16; TEMP 98.4; O2SAT 98
[2016-08-27 20:00] VITALS: BP 108/64; PULSE 57; RESP 18; TEMP 98.2; O2SAT 99
[2016-08-28] VITALS: BP 132/70; PULSE 64; RESP 18; TEMP 97.7; O2SAT 100
[2016-08-28 04:00] VITALS: BP 119/58; PULSE 62; RESP 20; TEMP 97.3; O2SAT 98
[2016-08-28] MEDS: KETOROLAC TROMETHAMINE 10 MG TAB PO SCH ×3 (05:51→16:49)
[2016-08-28 08:00] VITALS: BP 129/62; PULSE 64; RESP 20; TEMP 97.8; O2SAT 98
[2016-08-28] MEDS: cloNIDine HCL 0.1 MG TAB PO SCH ×2 (08:37→21:01)
[2016-08-28] MEDS: LORazepam 2 MG/ML VIAL IV PUSH PRN ×3 (08:37→21:01)
[2016-08-28 12:00] VITALS: BP 130/65; PULSE 66; RESP 20; TEMP 97.4; O2SAT 98
--- NOTE | 2016-08-28 12:21 | HHI.PR ---
Subjective Remarks This is a pleasant 41 y/o Male who continue receiving treatment for Right arm cellulitis patient stable no complaint, wants to go home, discussed with his Mother who states the family continue to struggle with the patient's Behavior but he continue with IDU. 08/26: Discussed with patient and his Mother in the room again, also nurse Miss Pickard also with ID specialist doctor Dontfraid he wants to continue Cefazolin 2 grams IV every 8 hours, repeat blood cultures to check if he is clearing the bacteremia, follow PAULETTE report to evaluate for Endocarditis. wrong MRSA test sent as per ID. 08/27: PAULETTE no Endocarditis 08/28: Stable in his bedroom doing exercise, no nausea, vomit or diarrhea, asking for Nicotine replacement. Objective Vital Signs Date Time Temp Pulse Resp B/P Pulse Ox O2 Delivery O2 Flow Rate FiO2 08/28/16 08:00 97.8 64 20 129/62 98 08/28/16 04:00 Room Air 08/28/16 04:00 97.3 62 20 119/58 98 08/28/16 00:00 97.7 64 18 132/70 100 08/28/16 00:00 Room Air 08/27/16 20:00 98.2 57 18 108/64 99 08/27/16 20:00 Room Air 08/27/16 16:00 98.4 78 16 141/73 98 I/O 08/27/16 08/27/16 08/27/16 08/28/16 08/28/16 08/28/16 07:00 15:00 23:00 07:00 15:00 23:00 Intake Total 4 ml 1200 ml 100 ml Balance 4 ml 1200 ml 100 ml Intake Oral 4 ml 1200 ml IV Total 100 ml # Voids 3 1 1 # Bowel Movements 0 1 0 0 Imaging Last Impressions Upper Extremity CT 08/20/16 0000 Signed Impressions: Service Date/Time: Saturday, August 20, 2016 13:32 - CONCLUSION: 1. Grossly abnormal examination demonstrating abnormal enhancement along the cephalic vein with a focal area of enlargement at the level of the mid forearm with significant induration and some fluid within the superficial and deep subcutaneous soft tissues. Primary consideration would be cellulitis/phlegmon and possible infected thrombophlebitis. There are likely small amounts of drainable fluid within this as well however, no well-defined, enhancing pocket for drain placement is identified. Andrew Fernandez MD Procedures PAULETTE Negative. Other Results No new laboratory performed. Objective Remarks GENERAL: Well-developed patient, in no apparent distress. SKIN: No rashes, warm and dry HEAD: Atraumatic. Normocephalic. EYES: Pupils equal round and reactive. Extraocular motions intact. No scleral icterus. ENT: Nose without bleeding, or drainage, Airway patent. NECK: Trachea midline. Supple CARDIOVASCULAR: Regular rate and rhythm without murmurs, gallops, or rubs. RESPIRATORY: Fair air entry bilaterally. No wheezes, rales, or rhonchi. GASTROINTESTINAL: Abdomen soft, non-tender, nondistended. Positive bowel sounds MUSCULOSKELETAL: Lower Extremities without clubbing, cyanosis, or edema. Improved swelling on Right upper extremity. NEUROLOGICAL: Awake and alert. Moves all extremity. Normal speech.no focal neurological deficit Medications and IVs Current Medications Medications (Trade) Dose Ordered Sig/Emeterio Route Start Time Stop Time Status Last Admin (Catapres) 0.1 mg BID PO 08/20/16 21:00 08/28/16 08:37 (Ativan Inj) 1 mg Q6H PRN IV PUSH 08/20/16 16:00 08/28/16 08:37 (Vasotec Inj) 1.25 mg Q6H PRN IV 08/20/16 16:00 (Catapres) 0.1 mg Q6H PRN PO 08/20/16 16:00 (Tylenol) 650 mg Q4H PRN PO 08/20/16 16:00 08/21/16 00:12 (Zofran Inj) 4 mg Q6H PRN IVP 08/20/16 16:00 (Dulcolax Supp) 10 mg DAILY PRN RECTAL 08/20/16 16:00 (Tylenol) 650 mg Q6H PRN PO 08/20/16 16:00 (Narcan Inj) 0.4 mg UNSCH PRN IV 08/20/16 16:00 Patient Own Medication PT OWN MED: (Buprenorphine 8MG-Nalox... DAILY PRN SL 08/20/16 18:15 08/24/16 08:56 Ibuprofen 400 mg 400 mg Q6H PRN PO 08/21/16 08:00 (Ancef Inj/NS Inj) 100 ml @ 200 mls/hr Q8H IV 08/23/16 09:00 08/28/16 08:36 (Toradol) 10 mg Q6HR PO 08/27/16 13:30 08/29/16 13:30 08/28/16 05:51 A/P Assessment and Plan (1) right forearm cellulitis and abscess Status: Acute (2) IVDA Status: Acute 1. Right forearm Cellulitis and abscess status post I and D and Clindamycin in Emergency Room, with MSSA/GPC bacteremia. CT shows cellulitis/phlegmon and possible infected thrombophlebitis. Warm compresses and elevation of the right upper extremity. ID specialist following, TTE and PAULETTE negative for vegetations, Continue Cefazolin. 2 g IV q 8 hours. MSSA positive on Cefazolin. 2. Hypertension. Controlled. 3. Polysubstance abuse. UDS with cocaine. Patient counseled. Discussed with patient and Nurse miss Jacobs all questions answered to the best of my abilities. DVT prophylaxis with SCDs Discharge Planning Awaiting final recommendations by ID specialist for discharge Griffin Manning MD August 28, 2016 12:21 Griffin Manning MD August 28, 2016 12:21
[2016-08-28] MEDS: NICOTINE 21 MG/24 HR PATCH T-DERMAL SCH (15:04)
[2016-08-28 16:00] VITALS: BP 118/70; PULSE 72; RESP 20; TEMP 97.2; O2SAT 100
[2016-08-28 20:00] VITALS: BP 138/78; PULSE 60; RESP 19; TEMP 97.6; O2SAT 100
[2016-08-29] VITALS: BP 128/71; PULSE 67; RESP 19; TEMP 97.8; O2SAT 98
[2016-08-29 04:00] VITALS: BP 123/60; PULSE 62; RESP 19; TEMP 97.6; O2SAT 99
[2016-08-29] MEDS: KETOROLAC TROMETHAMINE 10 MG TAB PO SCH ×3 (06:04→12:16)
[2016-08-29 08:00] VITALS: BP 143/62; PULSE 65; RESP 20; TEMP 97.6; O2SAT 99
--- NOTE | 2016-08-29 08:26 | HHI.PR ---
Subjective Remarks This is a pleasant 41 y/o Male who continue receiving treatment for Right arm cellulitis patient stable no complaint, wants to go home, discussed with his Mother who states the family continue to struggle with the patient's Behavior but he continue with IDU. 08/26: Discussed with patient and his Mother in the room again, also nurse Miss Pickard also with ID specialist doctor Sade he wants to continue Cefazolin 2 grams IV every 8 hours, repeat blood cultures to check if he is clearing the bacteremia, follow PAULETTE report to evaluate for Endocarditis. wrong MRSA test sent as per ID. 08/27: PAULETTE no Endocarditis 08/28: Stable in his bedroom doing exercise asking for Nicotine replacement. 08/29: Seen in his bedroom, no nausea, vomit or diarrhea, recommended by ID to continue Cefazolin 2 g IV every 8 hours, follow repeated blood culture to check if he is clearing the bacteria, if the repeat blood culture is negative at day 5, may be discharged on IV Ceftriaxone 2 grams daily until 09/05/16, CBC weekly/PICC line he can go to the outpatient infusion for the IV antibiotics. if blood culture positive at day five will need to re check for clearance previous to discharge. on longer course of antibiotics. Objective Vital Signs Date Time Temp Pulse Resp B/P Pulse Ox O2 Delivery O2 Flow Rate FiO2 08/29/16 04:00 Room Air 08/29/16 04:00 97.6 62 19 123/60 99 08/29/16 00:00 Room Air 08/29/16 00:00 97.8 67 19 128/71 98 08/28/16 21:00 Room Air 08/28/16 20:00 97.6 60 19 138/78 100 08/28/16 16:00 97.2 72 20 118/70 100 08/28/16 12:00 97.4 66 20 130/65 98 I/O 08/28/16 08/28/16 08/28/16 08/29/16 08/29/16 08/29/16 07:00 15:00 23:00 07:00 15:00 23:00 Intake Total 100 ml 480 ml 120 ml Balance 100 ml 480 ml 120 ml Intake Oral 480 ml 120 ml IV Total 100 ml # Voids 1 3 2 # Bowel Movements 0 0 Imaging Last Impressions Upper Extremity CT 08/20/16 0000 Signed Impressions: Service Date/Time: Saturday, August 20, 2016 13:32 - CONCLUSION: 1. Grossly abnormal examination demonstrating abnormal enhancement along the cephalic vein with a focal area of enlargement at the level of the mid forearm with significant induration and some fluid within the superficial and deep subcutaneous soft tissues. Primary consideration would be cellulitis/phlegmon and possible infected thrombophlebitis. There are likely small amounts of drainable fluid within this as well however, no well-defined, enhancing pocket for drain placement is identified. Andrew Fernandez MD Procedures PAULETTE Negative. Other Results No new Laboratory. Objective Remarks GENERAL: Well-developed patient, in no apparent distress. SKIN: No rashes, warm and dry HEAD: Atraumatic. Normocephalic. EYES: Pupils equal round and reactive. Extraocular motions intact. No scleral icterus. ENT: Nose without bleeding, or drainage, Airway patent. NECK: Trachea midline. Supple CARDIOVASCULAR: Regular rate and rhythm without murmurs, gallops, or rubs. RESPIRATORY: Fair air entry bilaterally. No wheezes, rales, or rhonchi. GASTROINTESTINAL: Abdomen soft, non-tender, nondistended. Positive bowel sounds MUSCULOSKELETAL: Lower Extremities without clubbing, cyanosis, or edema. Improved swelling on Right upper extremity. NEUROLOGICAL: Awake and alert. Moves all extremity. Normal speech.no focal neurological deficit Medications and IVs Current Medications Medications (Trade) Dose Ordered Sig/Emeterio Route Start Time Stop Time Status Last Admin (Catapres) 0.1 mg BID PO 08/20/16 21:00 08/28/16 21:01 (Ativan Inj) 1 mg Q6H PRN IV PUSH 08/20/16 16:00 08/28/16 21:01 (Vasotec Inj) 1.25 mg Q6H PRN IV 08/20/16 16:00 (Catapres) 0.1 mg Q6H PRN PO 08/20/16 16:00 (Tylenol) 650 mg Q4H PRN PO 08/20/16 16:00 08/21/16 00:12 (Zofran Inj) 4 mg Q6H PRN IVP 08/20/16 16:00 (Dulcolax Supp) 10 mg DAILY PRN RECTAL 08/20/16 16:00 (Tylenol) 650 mg Q6H PRN PO 08/20/16 16:00 (Narcan Inj) 0.4 mg UNSCH PRN IV 08/20/16 16:00 Patient Own Medication PT OWN MED: (Buprenorphine 8MG-Nalox... DAILY PRN SL 08/20/16 18:15 08/24/16 08:56 Ibuprofen 400 mg 400 mg Q6H PRN PO 08/21/16 08:00 (Ancef Inj/NS Inj) 100 ml @ 200 mls/hr Q8H IV 08/23/16 09:00 08/28/16 23:44 (Toradol) 10 mg Q6HR PO 08/27/16 13:30 08/29/16 13:30 08/29/16 06:04 (Habitrol 21 Mg Patch.24 Hr) 1 patch DAILY T-DERMAL 08/28/16 13:30 08/28/16 15:04 Miscellaneous Information 1 DAILY T-DERMAL 08/29/16 09:00 A/P Assessment and Plan (1) right forearm cellulitis and abscess Status: Acute (2) IVDA Status: Acute 1. Right forearm Cellulitis and abscess status post I and D and Clindamycin in Emergency Room, with MSSA/GPC bacteremia. CT shows cellulitis/phlegmon and possible infected thrombophlebitis. Warm compresses and elevation of the right upper extremity. ID specialist following, TTE and PAULETTE negative for vegetations, Continue Cefazolin. 2 g IV q 8 hours. MSSA positive on Cefazolin. : Seen in his bedroom, no nausea, vomit or diarrhea, recommended by ID to continue Cefazolin 2 g IV every 8 hours, follow repeated blood culture to check if he is clearing the bacteria, if the repeat blood culture is negative at day 5, may be discharged on IV Ceftriaxone 2 grams daily until 09/05/16, CBC weekly/PICC line, he can go to the outpatient infusion for the IV antibiotics. if blood culture positive at day five will need to re check fo clearance previous to discharge. on longer course of antibiotics. The patient is IDU will discuss with doctor Sade. 2. Hypertension. Controlled. 3. Polysubstance abuse. UDS with cocaine. Patient counseled. Discussed with patient and Nurse all questions answered to the best of my abilities. DVT prophylaxis with SCDs Discharge Planning Awaiting final recommendations by ID specialist for discharge Griffin Manning MD August 29, 2016 08:26
[2016-08-29] MEDS: NICOTINE 21 MG/24 HR PATCH T-DERMAL SCH (09:54)
[2016-08-29] MEDS: cloNIDine HCL 0.1 MG TAB PO SCH ×2 (09:54→21:05)
[2016-08-29] MEDS: LORazepam 2 MG/ML VIAL IV PUSH PRN ×3 (09:54→18:34)
[2016-08-29] MEDS: REMOVE OLD PATCH T-DERMAL SCH (09:57)
--- NOTE | 2016-08-29 11:21 | CF ---
cc: DEEP SU DATE OF PROCEDURE: 08/25/2016 PROCEDURE PERFORMED: Transesophageal echocardiogram. INDICATION: Bacteremia, IV drug use. Evaluation for endocarditis. SEDATION: Provided by Anesthesia. PROCEDURE: After the patient was sedated by Anesthesia, transesophageal probe was placed without difficulty. Tomographic images were obtained. Mitral valve was structurally normal. There was no evidence of mitral stenosis. There was evidence of trace mitral regurgitation. There was no evidence of mitral vegetations. The tricuspid valve was structurally normal; there was no evidence of tricuspid stenosis. There was evidence of trace tricuspid regurgitation. There was no evidence of tricuspid valve vegetations. The aortic valve was structurally normal. There was no evidence of aortic stenosis or aortic regurgitation. There was no evidence of aortic valve vegetations. Pulmonary valve was structurally normal. There was no evidence of pulmonary stenosis or regurgitation. The left atrial appendage was visualized and there was no evidence of left atrial thrombus. Left ventricular function was preserved. Estimated ejection fraction of 60% with no segmental wall motion abnormalities. Bubble study was performed and there was no evidence of [id number] shunt. DIAGNOSES: 1. No evidence of valvular vegetations. 2. No evidence of patent foramen ovale. 3. Preserved left ventricular systolic function. 4. Trace mitral regurgitation. 5. Trace tricuspid regurgitation. IMPRESSION: No evidence of endocarditis. MD ILIANA Arellano/SSB /1:49 PM /11:13 AM JAMIA
[2016-08-29 12:00] VITALS: BP 122/69; PULSE 86; RESP 20; TEMP 98; O2SAT 97
[2016-08-29 16:00] VITALS: BP 131/66; PULSE 77; RESP 20; TEMP 98.2; O2SAT 100
--- NOTE | 2016-08-29 16:11 | HHI.IDPN ---
Note Infectious Disease Note ID COVERAGE: Notes reviewed. Patient notes pain in r. wrist. Denies chills. Denies other areas of pain. Blood culture 08/22 still has staph aureus. Blood culture 08/26 - no growth. 2Decho - NO VEGETATIONS. PAULETTE - no vegetations. MRSA reported on swab wound culture of L. foot from 08/23.(Error). Patient has no foot wound. Patient with h/o IVDU came in with right forearm swelling and pain of the r. arm. I & D of right forearm abscess done. Wound culture growing MSSA and blood culture 07/19. Past Family Social History Coded Allergies: No Known Allergies (Verified , 08/20/16) Physical Exam Vital Signs Date Time Temp Pulse Resp B/P Pulse Ox O2 Delivery O2 Flow Rate FiO2 08/29/16 12:00 98.0 86 20 122/69 97 08/29/16 10:00 Room Air 08/29/16 08:00 97.6 65 20 143/62 99 08/29/16 04:00 Room Air 08/29/16 04:00 97.6 62 19 123/60 99 08/29/16 00:00 Room Air 08/29/16 00:00 97.8 67 19 128/71 98 08/28/16 21:00 Room Air 08/28/16 20:00 97.6 60 19 138/78 100 Date/Time Procedure Status Source Growth 08/22/16 10:30 Aerobic Blood Culture Received Blood Peripheral Pending 08/22/16 10:30 Anaerobic Blood Culture Received Blood Peripheral Pending 08/20/16 15:20 Gram Stain - Final Complete Wound Arm 08/20/16 15:20 Wound Culture - Final Complete Staphylococcus Aureus 08/20/16 15:05 Aerobic Blood Culture - Preliminary Resulted Blood Peripheral Gram Positive Cocci 08/20/16 15:05 Anaerobic Blood Culture - Preliminary Resulted Staphylococcus Aureus PHYSICAL EXAM: GENERAL: No acute distress. HEENT: EOMI, No icterus. No conjunctival erythema. NECK: Supple. No adenopathy. LUNGS: Clear breath sounds. CARDIAC: Regular rate and rhythm. No audible murmurs. ABDOMEN: Soft, non tender. EXTREMITIES: No CCE. Decreased swelling at the right volar forearm elbow and wrist. Tenderness and swelling at the r. wrist. SKIN: No rash. NEURO: Non focal. PSYCH: Calm and cooperative. Assessment and Plan Problem List: (1) right forearm cellulitis and abscess Status: Acute (2) IVDA Status: Acute (3) Bacteremia MSSA. High Grade. Rule out endocarditis. Status: Acute Plan: Continue IV Cefazolin 2 g IV q8hrs Follow repeat blood cultures to check if he is clearing the bacteremia. If the repeat blood culture is negative at day 5, It will be okay to discharge the patient on IV Ceftriaxone 2 grams daily until 09/05/16. CBC weekly / PIC line. He can go to the Outpatient infusion for the IV antibiotics. If the blood culture is still positive at days 5. He will need repeated blood cultures to check for clearance and longer course of the IV antibiotic. (4) Probable septic arthritis of the r. wrist from bacteremia. Plan as per #3. MRSA erroneously reported on the patient per my discussion with the nurse Anabel who sent the culture. She notified me that microbiology was notified and that the foot culture was on a different patient and was mislabelled. Based on that communication this patient does not have MRSA. I will not start him on antibiotics focused on treatment of MRSA since he has no foot wound. Raphael Stuart MD August 29, 2016 16:11
[2016-08-29 20:00] VITALS: BP 150/72; PULSE 81; RESP 20; TEMP 98.1; O2SAT 100
[2016-08-30] VITALS (7 sets, daily range): BP systolic 102–128; BP diastolic 52–76; PULSE 59–85; RESP 16–18; TEMP 97.4–98.3; O2SAT 98–100
[2016-08-30] MEDS: LORazepam 2 MG/ML VIAL IV PUSH PRN ×4 (01:09→22:01)
[2016-08-30 06:05] LABS: AUTOMATED NEUTROPHIL # 1.1 TH/MM3 (1.8-7.7); BASOPHIL % 0.9 % (0.0-2.0); EOSINOPHIL # 0.1 TH/MM3 (0-0.4); EOSINOPHIL % 2.8 % (0.0-4.0); HEMATOCRIT 34.6 % (39.0-51.0); HEMO FLAGS DIFF FINAL; LYMPH % 52.8 % (9.0-44.0); LYMPHOCYTE # 1.9 TH/MM3 (1.0-4.8); MEAN CELL VOLUME 78.4 FL (80.0-100.0); MEAN CORPUSCULAR HEMOGLOBIN 26.8 PG (27.0-34.0); MEAN CORPUSCULAR HGB CONC 34.2 % (32.0-36.0); MONO % 12.1 % (0.0-8.0); NEUT % 31.4 % (16.0-70.0); PLATELET COUNT 257 TH/MM3 (150-450); RED BLOOD COUNT 4.42 MIL/MM3 (4.50-5.90); RED CELL DISTRIBUTION WIDTH 13.2 % (11.6-17.2); WHITE BLOOD COUNT 3.6 TH/MM3 (4.0-11.0)
[2016-08-30] MEDS: cloNIDine HCL 0.1 MG TAB PO SCH ×2 (08:33→22:01)
[2016-08-30] MEDS: REMOVE OLD PATCH T-DERMAL SCH (08:34)
[2016-08-30] MEDS: NICOTINE 21 MG/24 HR PATCH T-DERMAL SCH (08:34)
--- NOTE | 2016-08-30 14:14 | HHI.PR ---
Subjective Remarks This is a pleasant 41 y/o Male who continue receiving treatment for Right arm cellulitis patient stable no complaint, wants to go home, discussed with his Mother who states the family continue to struggle with the patient's Behavior but he continue with IDU. 08/26: Discussed with patient and his Mother in the room again, also nurse Miss Pickard also with ID specialist doctor Madhuid he wants to continue Cefazolin 2 grams IV every 8 hours, repeat blood cultures to check if he is clearing the bacteremia, follow PAULETTE report to evaluate for Endocarditis. wrong MRSA test sent as per ID. 08/27: PAULETTE no Endocarditis 08/28: Stable in his bedroom doing exercise asking for Nicotine replacement. 08/29: recommended by ID to continue Cefazolin 2 g IV every 8 hours, follow repeated blood culture to check if he is clearing the bacteria, if the repeat blood culture is negative at day 5, may be discharged on IV Ceftriaxone 2 grams daily until 09/05/16, CBC weekly/PICC line he can go to the outpatient infusion for the IV antibiotics. if blood culture positive at day five will need to re check for clearance previous to discharge. on longer course of antibiotics. 08/30; Patient with his Mother in the room, no nausea, vomit or diarrhea, following ID specialist recommendations will follow blood cultures in am tomorrow if no growth will discharge him to [facility] already discussed, the patient is IDU and poor behavior will be dangerous to send this patient with PICC line outpatient due to his Behavior even if he sign a consent to be compliant. Objective Vital Signs Date Time Temp Pulse Resp B/P Pulse Ox O2 Delivery O2 Flow Rate FiO2 08/30/16 12:00 98.1 85 18 124/72 98 08/30/16 08:00 98.2 59 18 128/76 99 08/30/16 07:15 Room Air 08/30/16 04:00 97.4 63 18 102/52 100 08/30/16 00:00 Room Air 08/30/16 00:00 98.3 61 16 122/68 100 08/29/16 20:00 Room Air 08/29/16 20:00 98.1 81 20 150/72 100 08/29/16 16:00 98.2 77 20 131/66 100 I/O 5/15/17 5/15/08/29/16 08/30/16 08/30/16 08/30/16 07:00 15:00 23:00 07:00 15:00 23:00 Intake Total 120 ml 480 ml 1065 ml 0 ml Balance 120 ml 480 ml 1065 ml 0 ml Intake Oral 120 ml 480 ml 960 ml 0 ml IV Total 105 ml # Voids 2 5 2 0 # Bowel Movements 0 1 0 0 Result Diagram: 08/30/16 0430 Imaging Last Impressions Upper Extremity CT 08/20/16 0000 Signed Impressions: Service Date/Time: Saturday, August 20, 2016 13:32 - CONCLUSION: 1. Grossly abnormal examination demonstrating abnormal enhancement along the cephalic vein with a focal area of enlargement at the level of the mid forearm with significant induration and some fluid within the superficial and deep subcutaneous soft tissues. Primary consideration would be cellulitis/phlegmon and possible infected thrombophlebitis. There are likely small amounts of drainable fluid within this as well however, no well-defined, enhancing pocket for drain placement is identified. Andrew Fernandez MD Procedures PAULETTE Negative. Other Results Laboratory Tests Test 08/30/16 04:30 White Blood Count 3.6 TH/MM3 Red Blood Count 4.42 MIL/MM3 Hemoglobin 11.8 GM/DL Hematocrit 34.6 % Mean Corpuscular Volume 78.4 FL Mean Corpuscular Hemoglobin 26.8 PG Mean Corpuscular Hemoglobin 34.2 % Concent Red Cell Distribution Width 13.2 % Platelet Count 257 TH/MM3 Mean Platelet Volume 7.2 FL Neutrophils (%) (Auto) 31.4 % Lymphocytes (%) (Auto) 52.8 % Monocytes (%) (Auto) 12.1 % Eosinophils (%) (Auto) 2.8 % Basophils (%) (Auto) 0.9 % Neutrophils # (Auto) 1.1 TH/MM3 Lymphocytes # (Auto) 1.9 TH/MM3 Monocytes # (Auto) 0.4 TH/MM3 Eosinophils # (Auto) 0.1 TH/MM3 Basophils # (Auto) 0.0 TH/MM3 CBC Comment DIFF FINAL Differential Comment Objective Remarks GENERAL: Well-developed patient, in no apparent distress. SKIN: No rashes, warm and dry HEAD: Atraumatic. Normocephalic. EYES: Pupils equal round and reactive. Extraocular motions intact. No scleral icterus. ENT: Nose without bleeding, or drainage, Airway patent. NECK: Trachea midline. Supple CARDIOVASCULAR: Regular rate and rhythm without murmurs, gallops, or rubs. RESPIRATORY: Fair air entry bilaterally. No wheezes, rales, or rhonchi. GASTROINTESTINAL: Abdomen soft, non-tender, nondistended. Positive bowel sounds MUSCULOSKELETAL: Lower Extremities without clubbing, cyanosis, or edema. NEUROLOGICAL: Awake and alert. Moves all extremity. Normal speech.no focal neurological deficit Medications and IVs Current Medications Medications (Trade) Dose Ordered Sig/Emeterio Route Start Time Stop Time Status Last Admin (Catapres) 0.1 mg BID PO 08/20/16 21:00 08/30/16 08:33 (Ativan Inj) 1 mg Q6H PRN IV PUSH 08/20/16 16:00 08/30/16 08:33 (Vasotec Inj) 1.25 mg Q6H PRN IV 08/20/16 16:00 (Catapres) 0.1 mg Q6H PRN PO 08/20/16 16:00 (Tylenol) 650 mg Q4H PRN PO 08/20/16 16:00 08/21/16 00:12 (Zofran Inj) 4 mg Q6H PRN IVP 08/20/16 16:00 (Dulcolax Supp) 10 mg DAILY PRN RECTAL 08/20/16 16:00 (Tylenol) 650 mg Q6H PRN PO 08/20/16 16:00 (Narcan Inj) 0.4 mg UNSCH PRN IV 08/20/16 16:00 Patient Own Medication PT OWN MED: (Buprenorphine 8MG-Nalox... DAILY PRN SL 08/20/16 18:15 08/24/16 08:56 Ibuprofen 400 mg 400 mg Q6H PRN PO 08/21/16 08:00 (Ancef Inj/NS Inj) 100 ml @ 200 mls/hr Q8H IV 08/23/16 09:00 08/30/16 08:33 (Habitrol 21 Mg Patch.24 Hr) 1 patch DAILY T-DERMAL 08/28/16 13:30 08/30/16 08:34 Miscellaneous Information 1 DAILY T-DERMAL 08/29/16 09:00 08/30/16 08:34 A/P Assessment and Plan (1) right forearm cellulitis and abscess Status: Acute (2) IVDA Status: Acute 1. Right forearm Cellulitis and abscess status post I and D and Clindamycin in Emergency Room, with MSSA/GPC bacteremia. CT shows cellulitis/phlegmon and possible infected thrombophlebitis. Warm compresses and elevation of the right upper extremity. ID specialist following, TTE and PAULETTE negative for vegetations, Continue Cefazolin. 2 g IV q 8 hours. MSSA positive on Cefazolin. : Seen in his bedroom, no nausea, vomit or diarrhea, recommended by ID to continue Cefazolin 2 g IV every 8 hours, follow repeated blood culture to check if he is clearing the bacteria, if the repeat blood culture is negative at day 5, may be discharged on IV Ceftriaxone 2 grams daily until 09/05/16, CBC weekly/PICC line, he can go to the outpatient infusion for the IV antibiotics. if blood culture positive at day five will need to re check fo clearance previous to discharge. on longer course of antibiotics. The patient is IDU will discuss with doctor Sade. because this patient in particular is not able will need inpatient will be transferred tomorrow to [facility] 2. Hypertension. Controlled. 3. Polysubstance abuse. UDS with cocaine. Patient counseled. Discussed with patient his Mother and Nurse all questions answered to the best of my abilities. DVT prophylaxis with SCDs Discharge Planning Expected for tomorrow in am after blood culture negative for 5 days. Griffin Manning MD August 30, 2016 14:14
[2016-08-31 05:12] VITALS: BP 111/56; PULSE 58; RESP 16; TEMP 97.6; O2SAT 98
[2016-08-31 08:00] VITALS: BP 112/55; PULSE 72; RESP 18; TEMP 97.7; O2SAT 100
--- NOTE | 2016-08-31 08:35 | HHI.PR ---
Subjective Remarks This is a pleasant 41 y/o Male who continue receiving treatment for Right arm cellulitis patient stable no complaint, wants to go home, discussed with his Mother who states the family continue to struggle with the patient's Behavior but he continue with IDU. 08/26: Discussed with patient and his Mother in the room again, also nurse Miss Pickard also with ID specialist doctor Sade he wants to continue Cefazolin 2 grams IV every 8 hours, repeat blood cultures to check if he is clearing the bacteremia, follow PAULETTE report to evaluate for Endocarditis. wrong MRSA test sent as per ID. 08/27: PAULETTE no Endocarditis 08/28: Stable in his bedroom doing exercise asking for Nicotine replacement. 08/29: recommended by ID to continue Cefazolin 2 g IV every 8 hours, follow repeated blood culture to check if he is clearing the bacteria, if the repeat blood culture is negative at day 5, may be discharged on IV Ceftriaxone 2 grams daily until 09/05/16, CBC weekly/PICC line he can go to the outpatient infusion for the IV antibiotics. if blood culture positive at day five will need to re check for clearance previous to discharge. on longer course of antibiotics. 08/30; Patient with his Mother in the room, no nausea, vomit or diarrhea, following ID specialist recommendations will follow blood cultures in am tomorrow if no growth will discharge him to [facility] already discussed, the patient is IDU and poor behavior will be dangerous to send this patient with PICC line outpatient due to his Behavior even if he sign a consent to be compliant. 08/31: Stable discussed with patient in the room, will transfer to [place] to continue IV antibiotics there. No nausea, vomit or diarrhea. Objective Vital Signs Date Time Temp Pulse Resp B/P Pulse Ox O2 Delivery O2 Flow Rate FiO2 08/31/16 05:12 97.6 58 16 111/56 98 08/30/16 23:28 98.0 61 16 113/54 100 08/30/16 21:06 98.0 70 16 124/65 100 08/30/16 16:00 97.8 85 18 126/67 98 08/30/16 12:00 98.1 85 18 124/72 98 I/O 08/30/16 08/30/16 08/30/16 08/31/16 08/31/16 08/31/16 07:00 15:00 23:00 07:00 15:00 23:00 Intake Total 0 ml 1060 ml 600 ml 0 ml Balance 0 ml 1060 ml 600 ml 0 ml Intake Oral 0 ml 960 ml 600 ml 0 ml IV Total 100 ml # Voids 0 3 4 2 # Bowel Movements 0 1 0 0 Result Diagram: 08/30/16 0430 Imaging Last Impressions Upper Extremity CT 08/20/16 0000 Signed Impressions: Service Date/Time: Saturday, August 20, 2016 13:32 - CONCLUSION: 1. Grossly abnormal examination demonstrating abnormal enhancement along the cephalic vein with a focal area of enlargement at the level of the mid forearm with significant induration and some fluid within the superficial and deep subcutaneous soft tissues. Primary consideration would be cellulitis/phlegmon and possible infected thrombophlebitis. There are likely small amounts of drainable fluid within this as well however, no well-defined, enhancing pocket for drain placement is identified. Andrew Fernandez MD Procedures PAULETTE Negative. Other Results Laboratory Tests Test 08/30/16 04:30 White Blood Count 3.6 TH/MM3 Red Blood Count 4.42 MIL/MM3 Hemoglobin 11.8 GM/DL Hematocrit 34.6 % Mean Corpuscular Volume 78.4 FL Mean Corpuscular Hemoglobin 26.8 PG Mean Corpuscular Hemoglobin 34.2 % Concent Red Cell Distribution Width 13.2 % Platelet Count 257 TH/MM3 Mean Platelet Volume 7.2 FL Neutrophils (%) (Auto) 31.4 % Lymphocytes (%) (Auto) 52.8 % Monocytes (%) (Auto) 12.1 % Eosinophils (%) (Auto) 2.8 % Basophils (%) (Auto) 0.9 % Neutrophils # (Auto) 1.1 TH/MM3 Lymphocytes # (Auto) 1.9 TH/MM3 Monocytes # (Auto) 0.4 TH/MM3 Eosinophils # (Auto) 0.1 TH/MM3 Basophils # (Auto) 0.0 TH/MM3 CBC Comment DIFF FINAL Differential Comment Objective Remarks GENERAL: Well-developed patient, in no apparent distress. SKIN: No rashes, warm and dry HEAD: Atraumatic. Normocephalic. EYES: Pupils equal round and reactive. Extraocular motions intact. No scleral icterus. ENT: Nose without bleeding, or drainage, Airway patent. NECK: Trachea midline. Supple CARDIOVASCULAR: Regular rate and rhythm without murmurs, gallops, or rubs. RESPIRATORY: Fair air entry bilaterally. No wheezes, rales, or rhonchi. GASTROINTESTINAL: Abdomen soft, non-tender, nondistended. Positive bowel sounds MUSCULOSKELETAL: Lower Extremities without clubbing, cyanosis, or edema. NEUROLOGICAL: Awake and alert. Moves all extremity. Normal speech.no focal neurological deficit Medications and IVs Current Medications Medications (Trade) Dose Ordered Sig/Emeterio Route Start Time Stop Time Status Last Admin (Catapres) 0.1 mg BID PO 08/20/16 21:00 08/30/16 22:01 (Ativan Inj) 1 mg Q6H PRN IV PUSH 08/20/16 16:00 08/30/16 22:01 (Vasotec Inj) 1.25 mg Q6H PRN IV 08/20/16 16:00 (Catapres) 0.1 mg Q6H PRN PO 08/20/16 16:00 (Tylenol) 650 mg Q4H PRN PO 08/20/16 16:00 08/21/16 00:12 (Zofran Inj) 4 mg Q6H PRN IVP 08/20/16 16:00 (Dulcolax Supp) 10 mg DAILY PRN RECTAL 08/20/16 16:00 (Tylenol) 650 mg Q6H PRN PO 08/20/16 16:00 (Narcan Inj) 0.4 mg UNSCH PRN IV 08/20/16 16:00 Patient Own Medication PT OWN MED: (Buprenorphine 8MG-Nalox... DAILY PRN SL 08/20/16 18:15 08/24/16 08:56 Ibuprofen 400 mg 400 mg Q6H PRN PO 08/21/16 08:00 (Ancef Inj/NS Inj) 100 ml @ 200 mls/hr Q8H IV 08/23/16 09:00 08/31/16 02:39 (Habitrol 21 Mg Patch.24 Hr) 1 patch DAILY T-DERMAL 08/28/16 13:30 08/30/16 08:34 Miscellaneous Information 1 DAILY T-DERMAL 08/29/16 09:00 08/30/16 08:34 A/P Assessment and Plan (1) right forearm cellulitis and abscess Status: Acute (2) IVDA Status: Acute 1. Right forearm Cellulitis and abscess status post I and D and Clindamycin in Emergency Room, with MSSA/GPC bacteremia. CT shows cellulitis/phlegmon and possible infected thrombophlebitis. Warm compresses and elevation of the right upper extremity. ID specialist following, TTE and PAULETTE negative for vegetations, Continue Cefazolin. 2 g IV q 8 hours. MSSA positive on Cefazolin. : Seen in his bedroom, no nausea, vomit or diarrhea, recommended by ID to continue Cefazolin 2 g IV every 8 hours, follow repeated blood culture to check if he is clearing the bacteria, if the repeat blood culture is negative at day 5, may be discharged on IV Ceftriaxone 2 grams daily until 09/05/16, CBC weekly/PICC line, he can go to the outpatient infusion for the IV antibiotics. if blood culture positive at day five will need to re check fo clearance previous to discharge. on longer course of antibiotics. The patient is IDU will discuss with doctor Sade. because this patient in particular is not able will need inpatient will be transferred tomorrow to [facility] 2. Hypertension. Controlled. 3. Polysubstance abuse. UDS with cocaine. Patient counseled. Discussed with patient and Nurse all questions answered to the best of my abilities. DVT prophylaxis with SCDs Discharge Planning Transfer to [place] to finish his antibiotics. Griffin Manning MD August 31, 2016 08:35
[2016-08-31] MEDS: REMOVE OLD PATCH T-DERMAL SCH (09:00)
[2016-08-31] MEDS: NICOTINE 21 MG/24 HR PATCH T-DERMAL SCH (09:15)
[2016-08-31] MEDS: LORazepam 2 MG/ML VIAL IV PUSH PRN (09:16)
[2016-08-31] MEDS: cloNIDine HCL 0.1 MG TAB PO SCH ×2 (09:17→21:26)
[2016-08-31 12:00] VITALS: BP 140/78; PULSE 86; RESP 18; TEMP 98.4; O2SAT 98
[2016-08-31 16:45] VITALS: BP 137/77; PULSE 80; RESP 18; TEMP 96.7; O2SAT 100
[2016-08-31] MEDS: LORazepam 1 MG TAB PO PRN (17:17)
[2016-08-31] MEDS: ceFAZolin 2 GM PREMIX 50 ML IV SCH (17:17)
[2016-08-31 20:00] VITALS: BP 145/94; PULSE 84; RESP 14; TEMP 98; O2SAT 100
[2016-09-01] VITALS: BP 114/82; PULSE 79; RESP 16; TEMP 96.3; O2SAT 98
[2016-09-01] MEDS: ceFAZolin 2 GM PREMIX 50 ML IV SCH ×3 (01:42→16:14)
[2016-09-01] MEDS: LORazepam 1 MG TAB PO PRN ×3 (01:42→16:13)
[2016-09-01 04:00] VITALS: BP 119/68; PULSE 65; RESP 16; TEMP 96.9; O2SAT 99
[2016-09-01] MEDS: REMOVE OLD PATCH T-DERMAL SCH (09:00)
[2016-09-01 09:07] VITALS: BP 118/79; PULSE 74; RESP 14; TEMP 97.8; O2SAT 100
[2016-09-01] MEDS: NICOTINE 21 MG/24 HR PATCH T-DERMAL SCH (09:17)
[2016-09-01] MEDS: cloNIDine HCL 0.1 MG TAB PO SCH ×2 (09:19→20:55)
[2016-09-01 12:45] VITALS: BP 161/86; PULSE 75; RESP 18; TEMP 97.8
--- NOTE | 2016-09-01 15:40 | HHI.PR ---
Subjective Remarks Follow-up for abscess cellulitis to right arm and bacteremia. Patient was transferred to [place] for completion of IV antibiotics. The patient was wondering why he was not discharged to complete antibiotics outpatient. He states he was getting differing opinions from multiple doctors at the main hospital. He states they were concerned he would use again, but he denies being interested in using again. States he uses Suboxone and already went through 2 weeks of detox from cocaine. He states he needs to help out his dad and mom. He states he lives with them in [place]. Patient is concerned about a bump to his dorsal right forearm. Objective Vitals Vital Signs Date Time Temp Pulse Resp B/P Pulse Ox O2 Delivery O2 Flow Rate FiO2 09/01/16 13:40 18 09/01/16 12:45 97.8 75 18 161/86 09/01/16 09:07 97.8 74 14 118/79 100 09/01/16 04:00 96.9 65 16 119/68 99 09/01/16 00:00 96.3 79 16 114/82 98 09/01/16 00:00 96.3 79 16 114/82 98 08/31/16 20:00 98.0 84 14 145/94 100 08/31/16 16:45 96.7 80 18 137/77 100 I/O 08/31/16 08/31/16 08/31/16 09/01/16 09/01/16 09/01/16 07:00 15:00 23:00 07:00 15:00 23:00 Intake Total 0 ml 0 ml 220 ml 480 ml Balance 0 ml 0 ml 220 ml 480 ml Intake Oral 0 ml 220 ml 480 ml IV Total 0 ml # Voids 2 2 2 2 # Bowel Movements 0 0 0 Result Diagram: 08/30/16 0430 Imaging Last Impressions Upper Extremity CT 08/20/16 0000 Signed Impressions: Service Date/Time: Saturday, August 20, 2016 13:32 - CONCLUSION: 1. Grossly abnormal examination demonstrating abnormal enhancement along the cephalic vein with a focal area of enlargement at the level of the mid forearm with significant induration and some fluid within the superficial and deep subcutaneous soft tissues. Primary consideration would be cellulitis/phlegmon and possible infected thrombophlebitis. There are likely small amounts of drainable fluid within this as well however, no well-defined, enhancing pocket for drain placement is identified. Andrew Fernandez MD Objective Remarks GENERAL: Thin male in no apparent distress performing arm exercises lifting a bedside pole w/pump? listening to headphones. SKIN: Warm and dry. No erythema to the right forearm. Small area of induration with scar over the volar right forearm in area of previous I&D. No palpable fluctuance or drainage. There is an approximately 1 cm sized cyst? over the dorsal right forearm, no fluctuance or pain. CARDIOVASCULAR: Regular rate and rhythm. RESPIRATORY: No accessory muscle use. Clear to auscultation. Breath sounds equal bilaterally. GASTROINTESTINAL: Abdomen soft, non-tender, nondistended. MUSCULOSKELETAL: 2+ right distal radial pulse. No swelling to the right arm. NEUROLOGICAL: Awake and alert. Motor grossly within normal limits. Normal speech. PSYCHIATRIC: Appropriate mood and affect. Procedures Abscess I&D bedside in ED Urinary Catheter: No Vascular Central Line Catheter: No A/P Problem List: (1) right forearm cellulitis and abscess Status: Resolved (2) Bacteremia ICD Code: R78.81 Status: Resolved (3) IVDA Status: Acute Assessment and Plan 41-year-old male with: Right forearm Cellulitis and abscess: Resolved. Status post I&D. CT shows cellulitis/phlegmon and possible infected thrombophlebitis. Wound culture 08/20 with staph aureus. Bacteremia: MSSA in 4/4 blood cultures from 08/20/16. Repeat blood cultures with no growth in 5 days. -08/25 PAULETTE negative for valvular vegetation. -ID recommends continuing cefazolin 2 g IV every 8 hours. ID states if blood culture is negative at day 5 he could be discharged to outpatient infusion clinic for antibiotics until 09/05/16, but previous hospitalist on 08/31 states "Patient is IDU and poor behavior will be dangerous to send this patient with PICC line outpatient due to his behavior even if he signs a consent to be compliant". Discussed with Dr. Beatty, attending today. Patient to remain hospitalized for completion of antibiotics. Hypertension: Intermittent. -Continue scheduled Clonidine. Polysubstance abuse: UDS with cocaine. Patient counseled. DVT prevention: Patient advised to ambulate in halls. He was witnessed to be exercising in his room without issue. MRSA reported on foot wound from 08/23 is a mistake per ID. The patient never had a foot wound. Patient denies any history of MRSA in the past. He has been taken off of isolation. Mally Cabrera September 01, 2016 15:39
[2016-09-01 16:55] VITALS: BP 118/83; PULSE 76; RESP 18; TEMP 97.9; O2SAT 100
[2016-09-01 20:00] VITALS: BP 119/69; PULSE 75; RESP 16; TEMP 98.1; O2SAT 99
[2016-09-02] VITALS: BP 95/74; PULSE 76; RESP 16; TEMP 95.9; O2SAT 98
[2016-09-02] MEDS: ceFAZolin 2 GM PREMIX 50 ML IV SCH ×3 (02:35→18:19)
[2016-09-02] MEDS: LORazepam 1 MG TAB PO PRN ×3 (02:38→18:19)
[2016-09-02 04:00] VITALS: BP 90/59; PULSE 74; RESP 16; TEMP 95.8; O2SAT 99
[2016-09-02 08:00] VITALS: BP_SYST 116; BP_SYST 145; BP_DIAS 71; BP_DIAS 93; PULSE 69; PULSE 80; RESP 18; RESP 19; TEMP 97.3; TEMP 99; O2SAT 100; O2SAT 99
[2016-09-02] MEDS: REMOVE OLD PATCH T-DERMAL SCH (09:00)
[2016-09-02] MEDS: NICOTINE 21 MG/24 HR PATCH T-DERMAL SCH (09:43)
[2016-09-02] MEDS: cloNIDine HCL 0.1 MG TAB PO SCH ×2 (09:44→20:49)
--- NOTE | 2016-09-02 11:51 | HHI.PR ---
Subjective Remarks Follow-up for abscess cellulitis to right arm and bacteremia. Patient states he was given a suppository for constipation, but states he had watery drainage but denies it being liquid stool, and states he still felt blocked. He is agreeable to staying in the hospital to finish out his antibiotics as it is only a few more days. Objective Vitals Vital Signs Date Time Temp Pulse Resp B/P Pulse Ox O2 Delivery O2 Flow Rate FiO2 09/02/16 08:00 97.3 69 19 116/71 100 09/02/16 04:00 95.8 74 16 90/59 99 09/02/16 00:00 95.9 76 16 95/74 98 09/01/16 20:00 98.1 75 16 119/69 99 09/01/16 16:55 97.9 76 18 118/83 100 09/01/16 13:40 18 09/01/16 12:45 97.8 75 18 161/86 I/O 09/01/16 09/01/16 09/01/16 09/02/16 09/02/16 09/02/16 07:00 15:00 23:00 07:00 15:00 23:00 Intake Total 480 ml 720 ml 240 ml Balance 480 ml 720 ml 240 ml Intake Oral 480 ml 720 ml 240 ml # Voids 2 2 3 2 # Bowel Movements 0 0 0 Result Diagram: 08/30/16 0430 Objective Remarks GENERAL: Thin male in no apparent distress. SKIN: Warm and dry. No erythema to the right forearm. Small area of induration over the volar right forearm in area of previous I&D. No palpable fluctuance or drainage. CARDIOVASCULAR: Regular rate and rhythm. RESPIRATORY: No accessory muscle use. Clear to auscultation. Breath sounds equal bilaterally. GASTROINTESTINAL: Abdomen soft, non-tender, nondistended. MUSCULOSKELETAL: No swelling to the right arm. No lower extremity edema bilaterally. NEUROLOGICAL: Awake and alert. Motor grossly within normal limits. Normal speech. PSYCHIATRIC: Appropriate mood and affect. Procedures Abscess I&D bedside in ED Urinary Catheter: No Vascular Central Line Catheter: No A/P Problem List: (1) right forearm cellulitis and abscess Status: Resolved (2) Bacteremia ICD Code: R78.81 Status: Resolved (3) IVDA Status: Acute Assessment and Plan 41-year-old male with: Right forearm Cellulitis and abscess: Resolved. Status post I&D. CT shows cellulitis/phlegmon and possible infected thrombophlebitis. Wound culture 08/20 with staph aureus. Bacteremia: MSSA in 4/4 blood cultures from 08/20/16. Repeat blood cultures with no growth in 5 days. -08/25 PAULETTE negative for valvular vegetation. -ID recommends continuing cefazolin 2 g IV every 8 hours. ID states if blood culture is negative at day 5 he could be discharged to outpatient infusion clinic for antibiotics until 09/05/16, but previous hospitalist on 08/31 states "Patient is IDU and poor behavior will be dangerous to send this patient with PICC line outpatient due to his behavior even if he signs a consent to be compliant". Discussed with Dr. Beatty. Patient to remain hospitalized for completion of antibiotics; he is agreeable. Hypertension: Intermittent. -Continue scheduled Clonidine. Polysubstance abuse: UDS with cocaine. Patient counseled. On suboxone. Constipation: Patient received Dulcolax without relief yesterday. Abdomen is benign. Hold Dulcolax. Start Valeria-colace scheduled bid with Milk of Mag prn. DVT prevention: Patient advised to ambulate in halls. (MRSA reported on foot wound from 08/23 is a mistake per ID. The patient never had a foot wound. Patient denies any history of MRSA in the past.) Discharge Planning To remain hospitalized until completion of antibiotics on 09/05. Mally Cabrera September 02, 2016 11:51
[2016-09-02] MEDS ORDERED: MAGNESIUM HYDROXIDE SUSP 30 ML CUP PO PRN (18:30)
[2016-09-02] MEDS: DOCUSATE SODIUM 50 MG/SENNA 8.6 MG TAB PO SCH ×2 (18:35→20:50)
[2016-09-02 19:15] VITALS: BP 131/87; PULSE 110; RESP 16; TEMP 98.1; O2SAT 100
[2016-09-03] MEDS: ceFAZolin 2 GM PREMIX 50 ML IV SCH ×3 (01:05→16:15)
[2016-09-03 08:00] VITALS: BP 118/63; PULSE 64; RESP 18; TEMP 97.5; O2SAT 100
[2016-09-03] MEDS: REMOVE OLD PATCH T-DERMAL SCH (09:00)
[2016-09-03] MEDS: LORazepam 1 MG TAB PO PRN ×2 (09:42→16:58)
[2016-09-03] MEDS: NICOTINE 21 MG/24 HR PATCH T-DERMAL SCH (09:42)
[2016-09-03] MEDS: cloNIDine HCL 0.1 MG TAB PO SCH ×2 (09:42→22:43)
[2016-09-03] MEDS: DOCUSATE SODIUM 50 MG/SENNA 8.6 MG TAB PO SCH ×2 (09:42→22:43)
--- NOTE | 2016-09-03 12:08 | HHI.PR ---
Subjective Remarks Follow-up for right arm cellulitis, bacteremia. RN states patient has had nightmares and nausea due to nicotine patch and it has been removed. Patient requests a different patch, but has apparently been chewing nicotine gum. Patient was advised against this. Objective Vitals Vital Signs Date Time Temp Pulse Resp B/P Pulse Ox O2 Delivery O2 Flow Rate FiO2 09/03/16 08:00 97.5 64 18 118/63 100 09/02/16 19:15 98.1 110 16 131/87 100 I/O 09/02/16 09/02/16 09/02/16 09/03/16 09/03/16 09/03/16 07:00 15:00 23:00 07:00 15:00 23:00 Intake Total 240 ml 1100 ml Balance 240 ml 1100 ml Intake Oral 240 ml 1100 ml # Voids 2 5 2 # Bowel Movements 0 0 Result Diagram: 08/30/16 0430 Objective Remarks GENERAL: Thin male in no apparent distress. SKIN: Warm and dry. No erythema to the right forearm. Small area of induration over the volar right forearm in area of previous I&D. No palpable fluctuance or drainage. Cyst over dorsal R arm less palpable today. CARDIOVASCULAR: Regular rate and rhythm. RESPIRATORY: No accessory muscle use. Clear to auscultation. Breath sounds equal bilaterally. MUSCULOSKELETAL: No swelling to the right arm. NEUROLOGICAL: Awake and alert. Motor grossly within normal limits. Ambulating in the weeks. Normal speech. PSYCHIATRIC: Appropriate mood and affect. Procedures Abscess I&D bedside in ED Urinary Catheter: No Vascular Central Line Catheter: No A/P Problem List: (1) right forearm cellulitis and abscess Status: Resolved (2) Bacteremia ICD Code: R78.81 Status: Resolved (3) IVDA Status: Acute Assessment and Plan 41-year-old male with: Right forearm Cellulitis and abscess: Resolved. Status post I&D. CT shows cellulitis/phlegmon and possible infected thrombophlebitis. Wound culture 08/20 with staph aureus. Bacteremia: MSSA in 4/4 blood cultures from 08/20/16. Repeat blood cultures with no growth in 5 days. -08/25 PAULETTE negative for valvular vegetation. -ID recommends continuing cefazolin 2 g IV every 8 hours. ID states if blood culture is negative at day 5 he could be discharged to outpatient infusion clinic for antibiotics until 09/05/16, but previous hospitalist on 08/31 states "Patient is IDU and poor behavior will be dangerous to send this patient with PICC line outpatient due to his behavior even if he signs a consent to be compliant". Discussed with Dr. Beatty. Patient to remain hospitalized for completion of antibiotics; he is agreeable. Hypertension: Intermittent. -Continue scheduled Clonidine. Polysubstance abuse: UDS with cocaine. Patient counseled. On suboxone. Tobacco use: Discontinue 21 mg patch. Patient has been chewing nicotine gum as well. He is advised against this. He requests another patch, but will hold off at this time and observe patient without use. Constipation: Severe. No BM in greater than 72 hours. Likely attributed to suboxone use. Patient received Dulcolax without relief on 09/01. Hold Dulcolax. Valeria-colace scheduled bid started on 09/02. Order one time dose of Lactulose today. DVT prevention: Patient advised to ambulate in halls. (MRSA reported on foot wound from 08/23 is a mistake per ID. The patient never had a foot wound. Patient denies any history of MRSA in the past.) Discharge Planning To remain hospitalized until completion of antibiotics on 09/05. Mally Cabrera September 03, 2016 12:08
[2016-09-03] MEDS ORDERED: LACTULOSE SYRUP 20 GM/30 ML CUP PO ONE (16:30)
[2016-09-03 20:24] VITALS: BP 144/87; PULSE 81; RESP 20; TEMP 98.5; O2SAT 100
[2016-09-04] MEDS: ceFAZolin 2 GM PREMIX 50 ML IV SCH ×4 (01:50→17:00)
[2016-09-04] MEDS: LORazepam 1 MG TAB PO PRN ×3 (03:55→21:42)
[2016-09-04 08:00] VITALS: BP 124/79; PULSE 78; RESP 20; TEMP 97.9; O2SAT 100
[2016-09-04] MEDS: cloNIDine HCL 0.1 MG TAB PO SCH ×2 (09:12→20:06)
[2016-09-04] MEDS: DOCUSATE SODIUM 50 MG/SENNA 8.6 MG TAB PO SCH ×3 (09:12→20:08)
--- NOTE | 2016-09-04 09:28 | HHI.PR ---
Subjective Remarks Follow-up for R arm cellulitis, bacteremia. Patient has no acute issues. Nurse states the patient's IV is non-functional and he requires a new peripheral IV. Vasc access consult has been placed. Objective Vitals Vital Signs Date Time Temp Pulse Resp B/P Pulse Ox O2 Delivery O2 Flow Rate FiO2 09/03/16 20:24 98.5 81 20 144/87 100 I/O 09/03/16 09/03/16 09/03/16 09/04/16 09/04/16 09/04/16 06:59 14:59 22:59 06:59 14:59 22:59 Intake Total 650 ml Balance 650 ml Intake Oral 650 ml # Voids 2 1 1 Objective Remarks GENERAL: Thin male in no apparent distress sleeping when I enter the room. SKIN: Warm and dry. No erythema to the right forearm. Small area of induration over the volar right forearm in area of previous I&D appears smaller. No palpable fluctuance. CARDIOVASCULAR: Regular rate and rhythm. RESPIRATORY: No accessory muscle use. Clear to auscultation. Breath sounds equal bilaterally. GASTROINTESTINAL: Abdomen soft, non-tender, non-distended. MUSCULOSKELETAL: No swelling to the right arm. 2+ right distal radial pulse. NEUROLOGICAL: Awake and alert. Normal speech. PSYCHIATRIC: Appropriate mood and affect. Procedures Abscess I&D bedside in ED Urinary Catheter: No Vascular Central Line Catheter: No A/P Problem List: (1) right forearm cellulitis and abscess Status: Resolved (2) Bacteremia ICD Code: R78.81 Status: Resolved (3) IVDA Status: Acute Assessment and Plan 41-year-old male with: Right forearm Cellulitis and abscess: Resolved. Status post I&D. CT shows cellulitis/phlegmon and possible infected thrombophlebitis. Wound culture 08/20 with staph aureus. Bacteremia: MSSA in 4/4 blood cultures from 08/20/16. Repeat blood cultures with no growth in 5 days. -08/25 PAULETTE negative for valvular vegetation. -ID recommends continuing cefazolin 2 g IV every 8 hours. ID states if blood culture is negative at day 5 he could be discharged to outpatient infusion clinic for antibiotics until 09/05/16, but previous hospitalist on 08/31 states "Patient is IDU and poor behavior will be dangerous to send this patient with PICC line outpatient due to his behavior even if he signs a consent to be compliant". Discussed with Dr. Beatty. Patient to remain hospitalized for completion of antibiotics; he is agreeable. -09/04: Labs ordered due to antibiotics use, reviewed. CBC with WBC of 2.7. Neutrophil % is normal. CMP unremarkable. Leukopenia: Acute. WBC 2.7. Discussed with Dr. Beatty. Will order HIV antibody screen. Hypertension: Intermittent. -Continue scheduled Clonidine. Polysubstance abuse: UDS with cocaine. Patient counseled. On suboxone. Tobacco use: 21 mg patch discontinued. Patient has been chewing nicotine gum as well. He is advised against this. He requests another patch, but will hold off at this time and observe patient without use. Constipation: Improved. Likely attributed to suboxone use. -Patient received Dulcolax without relief on 09/01. -Valeria-colace scheduled bid started on 09/02. -One time dose of Lactulose administered on 09/03. -09/04: Nurse states patient has had 3 BMs today. Continue scheduled Valeria-colace with prn Magnesium hydroxide. DVT prevention: Patient advised to ambulate in halls. (MRSA reported on foot wound from 08/23 is a mistake per ID. The patient never had a foot wound. Patient denies any history of MRSA in the past.) Discharge Planning To remain hospitalized until completion of antibiotics on 09/05. Mally Cabrera September 04, 2016 09:28
[2016-09-04 10:32] LABS: EOSINOPHIL # 0.1 TH/MM3 (0-0.4); EOSINOPHIL % 3.1 % (0.0-4.0); LYMPH % 45.8 % (9.0-44.0); LYMPHOCYTE # 1.2 TH/MM3 (1.0-4.8); MEAN CELL VOLUME 82.1 FL (80.0-100.0); MEAN CORPUSCULAR HEMOGLOBIN 27.2 PG (27.0-34.0); MEAN CORPUSCULAR HGB CONC 33.1 % (32.0-36.0); MONO % 13.8 % (0.0-8.0); NEUT % 36.3 % (16.0-70.0); PLATELET COUNT 295 TH/MM3 (150-450); RED BLOOD COUNT 4.99 MIL/MM3 (4.50-5.90); RED CELL DISTRIBUTION WIDTH 13.2 % (11.6-17.2); WHITE BLOOD COUNT 2.7 TH/MM3 (4.0-11.0)
[2016-09-04 10:33] LABS: HEMO FLAGS AUTO DIFF
[2016-09-04 10:39] LABS: CHLORIDE 102 MEQ/L (98-107); POTASSIUM 4.2 MEQ/L (3.5-5.1); SODIUM (NA) 139 MEQ/L (136-145)
[2016-09-04 10:42] LABS: ANION GAP 5 MEQ/L (5-15); BICARBONATE 32.5 MEQ/L (21.0-32.0)
[2016-09-04 10:43] LABS: BLOOD UREA NITROGEN 14 MG/DL (7-18)
[2016-09-04 10:45] LABS: ALT (GPT) 16 U/L (12-78); AST (GOT) 19 U/L (15-37)
[2016-09-04 10:46] LABS: GLOMERULAR FILTRATION RATE 144 ML/MIN (>89)
[2016-09-04 10:47] LABS: TOTAL BILIRUBIN ADULT 0.3 MG/DL (0.2-1.0)
[2016-09-04 10:48] LABS: ALKALINE PHOSPHATASE 82 U/L (45-117)
[2016-09-04 10:52] LABS: BASOPHILS 5 % (0-2); EOSINOPHILS 6 % (0-4); NEUTROPHIL # MANUAL DIFF 1.1 TH/MM3 (1.8-7.7); POLYS (SEG NEUTROPHILS) 39 % (16-70); WBC DIFF SAMPLE 100
[2016-09-04 10:53] LABS: PLATELET ESTIMATE SMEAR NORMAL (NORMAL); PLATELET MORPHOLOGY NORMAL (NORMAL); ROULEAUX PRESENT (NORMAL); SCAN/DIFF FINAL DIFF MANUAL
[2016-09-04] MEDS ORDERED: LACTULOSE SYRUP 20 GM/30 ML CUP PO PRN (11:15)
[2016-09-04] MEDS ORDERED: MAGNESIUM HYDROXIDE SUSP 30 ML CUP PO PRN (11:30)
[2016-09-04 20:00] VITALS: BP 154/100; PULSE 65; RESP 19; TEMP 97.9; O2SAT 100
[2016-09-05] VITALS: BP 114/60; PULSE 58; RESP 19; TEMP 96.8; O2SAT 100
[2016-09-05] MEDS: ceFAZolin 2 GM PREMIX 50 ML IV SCH ×3 (01:13→17:35)
[2016-09-05 08:00] VITALS: BP 112/74; PULSE 58; RESP 16; TEMP 95.8; O2SAT 99
[2016-09-05] MEDS: cloNIDine HCL 0.1 MG TAB PO SCH ×3 (09:00→21:42)
[2016-09-05] MEDS: DOCUSATE SODIUM 50 MG/SENNA 8.6 MG TAB PO SCH ×2 (09:00→21:42)
--- NOTE | 2016-09-05 10:02 | HHI.PR ---
Subjective Remarks Follow up for right upper extremity cellulitis and abscess, bacteremia. New peripheral IV was placed over volar R forearm yesterday by vascular access. Patient gets agitated when I try to inform him that he was supposed to be discharged today but since he missed a dose of antibiotics yesterday he will not be discharged today. He states he is tired and asked if I can come back and tell him about this when his mother returns so he has a "witness". RN states patient would like a lower dose nicotine patch. She is advised that he cannot be chewing nicotine gum if this is ordered. Apparently his mother is supposed to take his gum home per the charge nurse. Later on the nurse contacted me stating that the patient was acting strange and cleaning everything in his room. HR and BP starting to increase although he did not get his Clonidine this morning. Ativan was given by nurse. Charge nurse went to speak with the patient. Apparently he has been taking his own Suboxone that his mom brought him. We had ordered this, but he apparently has not received it from our pharmacy since 08/24/16. Charge nurse also tells me the patient also had his own bottle of clonidine and took this as well. Objective Vitals Vital Signs Date Time Temp Pulse Resp B/P Pulse Ox O2 Delivery O2 Flow Rate FiO2 09/05/16 08:00 95.8 58 16 112/74 99 09/05/16 00:00 96.8 58 19 114/60 100 09/04/16 20:00 97.9 65 19 154/100 100 I/O 09/04/16 09/04/16 09/04/16 09/05/16 09/05/16 09/05/16 06:59 14:59 22:59 06:59 14:59 22:59 Intake Total 360 ml 675 ml Balance 360 ml 675 ml Intake Oral 360 ml 600 ml IV Total 75 ml # Voids 1 3 9 3 # Bowel Movements 3 3 Result Diagram: 09/04/1695509/04/16955 Objective Remarks GENERAL: Thin male in no apparent distress sleeping when I enter the room. SKIN: Warm and dry. No erythema to the right forearm. CARDIOVASCULAR: Regular rate and rhythm. RESPIRATORY: No accessory muscle use. Clear to auscultation. Breath sounds equal bilaterally. MUSCULOSKELETAL: No swelling to the right arm. NEUROLOGICAL: Awake and alert. Normal speech. PSYCHIATRIC: Irritated mood and affect. Procedures Abscess I&D bedside in ED Urinary Catheter: No Vascular Central Line Catheter: No A/P Problem List: (1) right forearm cellulitis and abscess Status: Resolved (2) Bacteremia ICD Code: R78.81 Status: Resolved (3) IVDA Status: Acute Assessment and Plan 41-year-old male with: Right forearm Cellulitis and abscess: Resolved. Status post I&D. CT shows cellulitis/phlegmon and possible infected thrombophlebitis. Wound culture 08/20 with staph aureus. Bacteremia: Resolved. MSSA in 4/4 blood cultures from 08/20/16. Repeat blood cultures 08/26/16 with no growth in 5 days. -08/25 PAULETTE negative for valvular vegetation. -ID recommends continuing cefazolin 2 g IV every 8 hours. ID states if blood culture is negative at day 5 he could be discharged to outpatient infusion clinic for antibiotics until 09/05/16, but previous hospitalist on 08/31 states "Patient is IDU and poor behavior will be dangerous to send this patient with PICC line outpatient due to his behavior even if he signs a consent to be compliant". Discussed with Dr. Beatty. Patient to remain hospitalized for completion of antibiotics; patient is agreeable. -09/05: Last dose of antibiotics is at 0100 on 09/06 because patient missed a dose yesterday. Leukopenia/neutropenia: Acute. WBC 2.7. Neutrophil #1.0. Previously normal on 08/20. Likely attributed to antibiotics, but HIV antibody test was performed and negative. Discussed with Dr. Beatty who advises against neutropenic precautions at this time. Will not switch antibiotics at this time as patient only has a few doses left. Values will likely recover when antibiotics are completed. -09/05: Recheck CBC tomorrow am. Hypertension: Intermittent. -Continue scheduled home Clonidine. Clonidine was held this morning due to lower BP and bradycardia. Polysubstance abuse: UDS with cocaine. Patient counseled. On suboxone. Tobacco use: 21 mg patch discontinued. Patient has been chewing nicotine gum as well and was advised against concurrent use. Again requests a patch today. 14 mg nicotine patch ordered. Mother to take nicotine gum home. Constipation: Resolved. Likely attributed to suboxone use. -Patient received Dulcolax without relief on 09/01. -Valeria-colace scheduled bid started on 09/02. -One time dose of Lactulose administered on 09/03. -Continue scheduled Valeria-colace with prn Magnesium hydroxide. -09/05: 6 BMs are documented over the last 24 hours, but this is a mistake as nurse has verified with patient that he only had 3 BMs. First two were apparently normal, third more liquid-like so patient refused Valeria-colace this morning. DVT prevention: Patient advised to ambulate in halls. ([facility]SA reported on foot wound from 08/23 is a mistake per ID. The patient never had a foot wound. Patient denies any history of MRSA in the past.) Discharge Planning To remain hospitalized until completion of antibiotics on 09/05. Mally Cabrera September 05, 2016 10:01
[2016-09-05] MEDS: LORazepam 1 MG TAB PO PRN ×2 (10:25→18:31)
[2016-09-05] MEDS: REMOVE OLD PATCH T-DERMAL SCH (12:00)
[2016-09-05] MEDS: NICOTINE 14 MG/24 HR PATCH T-DERMAL SCH (12:21)
[2016-09-05 13:40] VITALS: BP 148/91; PULSE 94
[2016-09-05 20:00] VITALS: BP 118/71; PULSE 66; RESP 16; TEMP 98.4; O2SAT 100
[2016-09-06] MEDS: ceFAZolin 2 GM PREMIX 50 ML IV SCH ×2 (00:49→09:19)
--- NOTE | 2016-09-06 08:59 | HHI.DCPOC ---
Discharge Care Plan Diagnosis: (1) Narcotic abuse in remission (2) IVDA (3) Bacteremia (4) right forearm cellulitis and abscess Goals to Promote Your Health * To prevent worsening of your condition and complications * To maintain your health at the optimal level Directions to Meet Your Goals Take your medications as prescribed Follow your dietary instruction Follow activity as directed Keep your appointments as scheduled Take your immunizations and boosters as scheduled If your symptoms worsen call your PCP, if no PCP go to Urgent Care Center or Emergency Room Smoking is Dangerous to Your Health. Avoid second hand smoke Call the 24-hour hour crisis hotline for domestic abuse at Zamzam Koehler September 06, 2016 08:59
[2016-09-06] MEDS: REMOVE OLD PATCH T-DERMAL SCH (09:00)
--- NOTE | 2016-09-06 09:03 | HHI.DS ---
Discharge Summary Admission Date August 24, 2016 at 10:19 Discharge Date: September 06, 2016 Admitting Diagnosis Cellulitis, sepsis (1) right forearm cellulitis and abscess Diagnosis: Principal (2) Bacteremia ICD Code: R78.81 Diagnosis: Principal (3) IVDA Diagnosis: Principal Procedures Abscess I&D bedside in ED Brief History - From Admission This is a 41-year-old male with history of IV narcotic abuse and HTN. He comes in complaining of pain and swelling to his right arm for the past several days. He reports of constant pressure. He noted a small bump a few days ago and it quickly got worse. He was febrile Tmax of over 101 improved after taking Tylenol. He does admit to injecting Dilaudid in his arm. He denies any chest pain or shortness of breath. Has history of MRSA. In the emergency department , abscess was drained and he was given IV clindamycin CBC/BMP: 09/04/16 0956 09/04/16 0956 Significant Findings Laboratory Tests Test 09/04/16 09:56 White Blood Count 2.7 TH/MM3 (4.0-11.0) Mean Platelet Volume 6.9 FL (7.0-11.0) Lymphocytes (%) (Auto) 45.8 % (9.0-44.0) Monocytes (%) (Auto) 13.8 % (0.0-8.0) Neutrophils # (Auto) 1.0 TH/MM3 (1.8-7.7) Monocytes % 15 % (0-8) Eosinophils % 6 % (0-4) Basophils % 5 % (0-2) Neutrophils # (Manual) 1.1 TH/MM3 (1.8-7.7) Rouleau PRESENT (NORMAL) Carbon Dioxide Level 32.5 MEQ/L (21.0-32.0) Imaging Last Impressions Upper Extremity CT 08/20/16 0000 Signed Impressions: Service Date/Time: Saturday, August 20, 2016 13:32 - CONCLUSION: 1. Grossly abnormal examination demonstrating abnormal enhancement along the cephalic vein with a focal area of enlargement at the level of the mid forearm with significant induration and some fluid within the superficial and deep subcutaneous soft tissues. Primary consideration would be cellulitis/phlegmon and possible infected thrombophlebitis. There are likely small amounts of drainable fluid within this as well however, no well-defined, enhancing pocket for drain placement is identified. Andrew Fernandez MD PE at Discharge GENERAL: Thin male in no apparent distress sleeping when I enter the room. SKIN: Warm and dry. No erythema to the right forearm. CARDIOVASCULAR: Regular rate and rhythm. RESPIRATORY: No accessory muscle use. Clear to auscultation. Breath sounds equal bilaterally. MUSCULOSKELETAL: No swelling to the right arm. NEUROLOGICAL: Awake and alert. Normal speech. PSYCHIATRIC: Irritated mood and affect. Pt update on day of discharge Patient seen and examined at bedside. He is laying in bed watching TV. Denies any pain, sob, fever or chills. He is wanting to get home. Patient received his last dose of antibiotics this morning. He is stable for discharge. Discussed with patient the importance of stopping all drug use, and to follow up with a PCP and the physician who follows his Suboxone. Patient verbalizes understanding. Hospital Course 41-year-old male with Right forearm Cellulitis and abscess, that has Resolved. Status post I&D. CT shows cellulitis/phlegmon and possible infected thrombophlebitis. Wound culture 08/20 with staph aureus. Patient developed Bacteremia, MSSA in 4/4 blood cultures from 08/20/16. Repeat blood cultures with no growth in 5 days. PAULETTE on 08/25 was negative for valvular vegetation. ID was consulted and recommended continuing cefazolin 2 g IV every 8 hours until 09/05. Patient missed one dose, time was extended by 1 day. Last dose was at 1am. Due to patients IVDA status patient was not discharged to outpatient infusion clinic for antibiotics. Patient remained stable and cellulitis resolved. During hospitalization patient had Leukopenia/neutropenia: Acute. WBC 2.7. Neutrophil #1.0. Previously normal on 08/20. Likely attributed to antibiotics, but HIV antibody test was performed and negative. Patient has had chronic neutropenia in the past and this is not a new condition. Patient was positive for cocoaine on admission, which can also cause leukopenia/neutropenia. Patient will need to follow up out patient with PCP. Patient verbalizes understanding of follow up and the need to avoid drug use. Patient has chronic hypertension, BP has remained stable with home dose of clonidine. Will continue at discharge. Patient verbalizes understanding. Patient also has chronic Polysubstance abuse: UDS with cocaine. Patient counseled and encouraged to quit. On Suboxone at home. He has remained stable through hospitalization, no active withdrawals. Patient counseled on following up with physician who proscribes Suboxone in order to continue taking it. Patient verbalizes understanding of medication and need to quit all illicit drugs. Pt Condition on Discharge: Stable Discharge Disposition: Discharge Home Discharge Time: > 30 minutes Discharge Instructions DIET: Follow Instructions for: As Tolerated, No Restrictions, Heart Healthy Diet Activities you can perform: Regular-No Restrictions Other Activity Instructions: Avoid all drug use. Follow up Referrals: PCP Follow-up - 2-3 Days Continued Medications: Buprenorphine-Naloxone Sublingual Film (Suboxone Sublingual Film) 8-2 Mg Film 0.5 FILM SL DAILY Unique ID number required: [id number] Clonidine (Clonidine) 0.1 Mg Tab 0.1 MG PO BID Blood Pressure Management #60 Ref 0 TAB Zamzam Koehler September 06, 2016 09:02
[2016-09-06] MEDS: cloNIDine HCL 0.1 MG TAB PO SCH (09:19)
[2016-09-06] MEDS: DOCUSATE SODIUM 50 MG/SENNA 8.6 MG TAB PO SCH (09:19)
[2016-09-06] MEDS: NICOTINE 14 MG/24 HR PATCH T-DERMAL SCH (09:20)
[2016-09-08] MEDS ORDERED: CLON0.1T PO (16:38)
== END 2016-09-06 10:54 | disposition home or self-care (01) | DRG 872 ==
LOC: PHED 12:13 → PHEDA 15:12 → PH3A 17:01 → OBSVTOIN 08-24 10:19 → N04B 08-24 18:14 → N04A 08-24 18:49 → PH5A 08-31 15:40
PROVIDERS: ADMIT Hospitalist; ATTEND Hospitalist
PROC: 0J9G0ZX Drainage of Right Lower Arm Subcutaneous Tissue and Fascia, Open Approach, Diagnostic (ICD-10-PCS; 2016-08-20)
PROC: B246ZZ4 Ultrasonography of Right and Left Heart, Transesophageal (ICD-10-PCS; principal; 2016-08-25)
DX: R78.81 Bacteremia (principal); D70.9 Neutropenia, unspecified; L02.413 Cutaneous abscess of right upper limb; L03.113 Cellulitis of right upper limb; B95.61 Methicillin susceptible Staphylococcus aureus infection as the cause of diseases classified elsewhere; F11.10 Opioid abuse, uncomplicated; Z86.14 Personal history of Methicillin resistant Staphylococcus aureus infection; D72.819 Decreased white blood cell count, unspecified; F17.210 Nicotine dependence, cigarettes, uncomplicated; I10 Essential (primary) hypertension; K59.00 Constipation, unspecified
CPT/HCPCS: 10060; 73201; 76937; 80048; 80053; 80202; 80307; 83605; 83735; 85007; 85025; 85027; 86403; 86703; 87040; 87070; 87077; 87147; 87186; 87205; 87641; 93306; 93312; 93320; 93325; 96361; 96365; 96375; J0690; J1885; J2060; J2270; J3370; J7030; J7050; Q9967